=== PATIENT | female | born 1960 | race Caucasian/White ===

== ENCOUNTER 2017-08-09 10:24 | Inpatient (IN) | payer MEDICARE, MEDICAID ==
[2017-08-09] VITALS (7 sets, daily range): BP systolic 98–122; BP diastolic 68–87
[~2017-08-09] VITALS: Ht 175.3 cm; Wt 132.6 kg
[~2017-08-09 10:24] MED LIST: ALBU2.5V10 IH; ALBU8.5H8 IH; ASPI-1265 PO; BACL20TA PO; BUDE10.2 INH; CLON-527 PO; FLUO10CA51 PO; FURO80TA87 PO; GABA-532 PO; HYDR12.5 PO; METF500T4 PO; MIRT15TA PO; POTA8CAP9 PO; PRED20TA PO; SIMV40TA4 PO; SPIIN INH; TRAM50TA2 PO; WARF4TAB7 PO
[2017-08-09 11:35] LABS: BASOPHILS # (AUTO) 0.1 X10'3 (0-0.2); BASOPHILS % (AUTO) 1.3 % (0-1); EOSINOPHILS # (AUTO) 0.2 X10'3 (0-0.9); EOSINOPHILS % (AUTO) 1.9 % (0-6); HEMOGLOBIN 11.9 g/dl (12.0-16.0); MEAN CORPUSCULAR HEMOGLOBIN 27.2 PG (27.0-31.0); MEAN CORPUSCULAR HGB CONC 31.4 % (33.0-36.5); MEAN CORPUSCULAR VOLUME 86.5 FL (78-98); MEAN PLATELET VOLUME 8.4 FL (7.4-10.4); MONOCYTES # (AUTO) 0.5 X10'3 (0-0.9); MONOCYTES % (AUTO) 5.6 % (2-12); NEUTROPHILS # (AUTO) 6.6 X10'3 (1.8-7.7); NEUTROPHILS % (AUTO) 70.2 % (42-75); PLATELET COUNT 161 X10'3 (140-440); RED BLOOD COUNT 4.39 X10'6 (4.20-5.60); RED CELL DISTRIBUTION WIDTH 20.1 % (11.5-14.5); WHITE BLOOD COUNT 9.4 X10'3 (4.5-11.0)
[2017-08-09 11:46] LABS: INR 1.8 INR; PROTHROMBIN TIME 18.3 SECONDS (9.0-12.0)
[2017-08-09 11:59] LABS: ALANINE AMINOTRANSFERASE 46 U/L (12-78); ALBUMIN/GLOBULIN RATIO 0.8 (1.1-1.5); ALKALINE PHOSPHATASE 275 IU/L (46-116); ANION GAP 5 (8-16); ASPARTATE AMINO TRANSFERASE 34 U/L (10-37); BILIRUBIN,TOTAL 0.4 MG/DL (0.1-1.0); BLOOD UREA NITROGEN 62 MG/DL (7-18); BUN/CREATININE RATIO 25.4 (6.6-38.0); CALCIUM 9.2 MG/DL (8.5-10.1); CHLORIDE 103 MMOL/L (99-107); CREATININE 2.44 MG/DL (0.40-0.90); GLUCOSE 91 MG/DL (70-104); POTASSIUM 5.5 MMOL/L (3.5-5.1); SODIUM 141 MMOL/L (135-145); TOTAL CARBON DIOXIDE 33.2 MMOL/L (24-32); eGFR 20 ML/MIN
[2017-08-09] MEDS ORDERED: ipratropium/albuterol 3ml nebule NEB ONE (12:15)
[2017-08-09] MEDS ORDERED: furosemide 40mg/4ml inj IV ONE (12:15)
[2017-08-09] MEDS ORDERED: methylPREDNISolone sod succ 125mg/2ml vial IV ONE (12:15)
[2017-08-09] MEDS ORDERED: metoprolol tartrate 50mg tablet PO ONE (12:50)
[2017-08-09] MEDS ORDERED: nitroGLYCERIN 0.4mg SUBLingual tab SL PRN ×2 (12:50→13:55)
[2017-08-09] MEDS ORDERED: aspirin 81mg tab.chew PO ONE (12:50)
[2017-08-09] MEDS ORDERED: diltiazem 5mg/ml 5ml inj. IV ONE (12:50)
[2017-08-09] MEDS ORDERED: acetaminophen 325mg tablet PO PRN (13:40)
[2017-08-09] MEDS ORDERED: morphine 2 MG/ML inj. syringe IV PRN ×2 (13:40)
[2017-08-09] MEDS ORDERED: magnesium 4gm in 100ml NS 100 ML IV PRN (13:40)
[2017-08-09] MEDS ORDERED: mag hydrox/Alum hydrox/simeth 30ml oral suspension PO PRN (13:40)
[2017-08-09] MEDS ORDERED: magnesium 2GM in 50ml NS 50 ML IV PRN (13:40)
[2017-08-09] MEDS ORDERED: magnesium Cl slow-release 64mg tablet PO PRN (13:40)
[2017-08-09] MEDS ORDERED: potassium Cl 20 mEq SR tablet PO PRN ×2 (13:40)
[2017-08-09] MEDS ORDERED: diltiazem-D5W 125mg/125ml 125 ML IV SCH (13:40)
[2017-08-09] MEDS ORDERED: HYDROcodone/acetaminophen 5mg/325mg tablet PO PRN (13:40)
[2017-08-09] MEDS ORDERED: ondansetron/PF 4mg/2ml inj IV PRN (13:40)
[2017-08-09] MEDS ORDERED: potassium Cl 40MEQ/NS 500ml 500 ML IV PRN ×2 (13:40)
[2017-08-09] MEDS ORDERED: magnesium hydroxide 30ml (MOM) UD suspension PO PRN (13:40)
[2017-08-09] MEDS ORDERED: dextrose ORAL solution 15 GM/59 ML bottle PO PRN ×2 (13:50)
[2017-08-09] MEDS ORDERED: glucagon, human recombinant 1mg kit SUBCUT PRN (13:50)
[2017-08-09] MEDS ORDERED: dextrose 50%-water 50ml dispensing syringe IV PRN ×2 (13:50)
[2017-08-09] MEDS ORDERED: MESSAGE TO PHARMACY PO ONE (13:50)
[2017-08-09] MEDS: methylPREDNISolone sod succ 125mg/2ml vial IV SCH ×2 (14:00→20:46)
[2017-08-09] MEDS: gabapentin 300mg capsule PO SCH ×2 (14:00→20:49)
[2017-08-09] MEDS: furosemide 20 MG/2 ML vial IV SCH ×2 (14:00→20:51)
[2017-08-09] MEDS ORDERED: sodium polystyrene sulfonate 15gm/60ml oral suspension PO ONE (14:05)
[2017-08-09 14:26] LABS: HEMOGLOBIN A1C 7.4 % (4.5-6.2)
[2017-08-09] MEDS ORDERED: albuterol 2.5 MG/3 ML nebule NEB PRN (14:30)
[2017-08-09 14:48] LABS: CLARITY,URINE CLEAR (Clear); COLOR,URINE YELLOW (Yellow); GLUCOSE, URINE NEGATIVE (Neg); KETONES,URINE NEGATIVE (Neg); LEUKOCYTE ESTERASE ,URINE NEGATIVE (Neg); NITRITES, URINE NEGATIVE (Neg); OCCULT BLOOD,URINE NEGATIVE (Neg); PH,URINE 5.5 (4.8-8.0); PROTEIN,URINE NEGATIVE (Neg); UROBILINOGEN,URINE 0.2 E.U/dL (0.2-1.0)
[2017-08-09 14:49] LABS: UA COLLECTION TYPE FOLEY CATH
[2017-08-09] MEDS: diltiazem-D5W 125mg/125ml 125 ML IV PRN (16:06)
[2017-08-09] MEDS ORDERED: gabapentin 300mg capsule PO ONE (16:20)
[2017-08-09] MEDS: ipratropium/albuterol 3ml nebule NEB SCH ×3 (16:26→23:04)
[2017-08-09] MEDS: baclofen 10mg tablet PO SCH (20:00)
[2017-08-09] MEDS: mirtazapine 15mg tablet PO SCH (20:47)
[2017-08-09] MEDS: clonazePAM 1mg tablet PO PRN (20:49)
[2017-08-09] MEDS: FLUoxetine 10mg capsule PO SCH (20:51)
[2017-08-09] MEDS: docusate sod 100mg capsule PO SCH (20:51)
[2017-08-09] MEDS ORDERED: potassium Cl oral solution 20 MEQ/15 ML PO SCH (21:00)
[2017-08-09] MEDS ORDERED: warfarin 4mg tablet PO SCH (21:00)
[2017-08-09] MEDS ORDERED: warfarin 4mg tablet PO ONE (21:00)
[2017-08-09] MEDS ORDERED: atorvastatin 20mg tablet PO SCH (21:00)
[2017-08-09] MEDS: Insulin Detemir pen SQ SCH (21:14)
[2017-08-09] MEDS: insulin Lispro (HumaLOG) vial - multi-dose SQ SCH (21:15)
[2017-08-10] VITALS (19 sets, daily range): BP systolic 92–128; BP diastolic 41–95
[2017-08-10 01:25] LABS: BASOPHILS % (AUTO) 0.1 % (0-1); EOSINOPHILS # (AUTO) 0.1 X10'3 (0-0.9); EOSINOPHILS % (AUTO) 1.7 % (0-6); HEMOGLOBIN 11.9 g/dl (12.0-16.0); LYMPHOCYTES # (AUTO) 1.1 X10'3 (1.1-4.8); LYMPHOCYTES % (AUTO) 14.3 % (21-51); MEAN CORPUSCULAR HEMOGLOBIN 26.8 PG (27.0-31.0); MEAN CORPUSCULAR HGB CONC 31.2 % (33.0-36.5); MEAN PLATELET VOLUME 8.8 FL (7.4-10.4); MONOCYTES % (AUTO) 0.6 % (2-12); NEUTROPHILS # (AUTO) 6.7 X10'3 (1.8-7.7); NEUTROPHILS % (AUTO) 83.3 % (42-75); PLATELET COUNT 160 X10'3 (140-440); RED BLOOD COUNT 4.42 X10'6 (4.20-5.60); RED CELL DISTRIBUTION WIDTH 20.6 % (11.5-14.5)
[2017-08-10 01:34] LABS: INR 1.7 INR; PROTHROMBIN TIME 17.6 SECONDS (9.0-12.0)
[2017-08-10] MEDS: furosemide 20 MG/2 ML vial IV SCH ×4 (01:41→20:52)
[2017-08-10] MEDS: methylPREDNISolone sod succ 125mg/2ml vial IV SCH ×4 (01:41→20:52)
[2017-08-10 01:42] LABS: ALANINE AMINOTRANSFERASE 80 U/L (12-78); ALBUMIN/GLOBULIN RATIO 0.8 (1.1-1.5); ALKALINE PHOSPHATASE 337 IU/L (46-116); ANION GAP 5 (8-16); ASPARTATE AMINO TRANSFERASE 92 U/L (10-37); BILIRUBIN,TOTAL 0.5 MG/DL (0.1-1.0); BLOOD UREA NITROGEN 70 MG/DL (7-18); BUN/CREATININE RATIO 26.5 (6.6-38.0); CALCIUM 8.9 MG/DL (8.5-10.1); CHLORIDE 100 MMOL/L (99-107); CHOL/HDL RATIO 2.6 (0.00-4.99); CHOLESTEROL 128 MG/DL (0-200); CREATININE 2.64 MG/DL (0.40-0.90); GLUCOSE 272 MG/DL (70-104); HDL CHOLESTEROL 50 MG/DL (35-60); LDL CHOLESTEROL 60 MG/DL (50-100); MAGNESIUM 3.1 MG/DL (1.5-2.4); SODIUM 137 MMOL/L (135-145); TOTAL CARBON DIOXIDE 31.8 MMOL/L (24-32); TOTAL PROTEIN 6.9 G/DL (6.4-8.2); TRIGLYCERIDES 81 MG/DL (20-135); eGFR 19 ML/MIN
[2017-08-10] MEDS: ipratropium/albuterol 3ml nebule NEB SCH ×6 (02:56→22:56)
[2017-08-10] MEDS: docusate sod 100mg capsule PO SCH ×2 (08:00→20:51)
[2017-08-10] MEDS: K and/or MAG REPLACEMENT MC SCH (08:00)
[2017-08-10] MEDS: baclofen 10mg tablet PO SCH ×3 (08:00→20:52)
[2017-08-10] MEDS: fluticasone/vilanterol 200mcg/25mcg inhaler IH SCH (08:46)
[2017-08-10] MEDS: aspirin 81mg tab.chew PO SCH (09:11)
[2017-08-10] MEDS: clonazePAM 1mg tablet PO PRN ×3 (09:11→20:51)
[2017-08-10] MEDS: FLUoxetine 10mg capsule PO SCH ×3 (09:11→20:51)
[2017-08-10] MEDS: gabapentin 300mg capsule PO SCH ×3 (09:12→20:51)
[2017-08-10] MEDS: traMADol 50MG tablet PO PRN ×2 (09:13→20:50)
[2017-08-10] MEDS: pantoprazole 40mg Tablet.DR PO SCH (09:18)
[2017-08-10] MEDS: insulin Lispro (HumaLOG) vial - multi-dose SQ SCH ×3 (09:21→23:26)
[2017-08-10 10:20] LABS: ALBUMIN 3.1 G/DL (3.4-5.0); ANION GAP 5 (8-16); BLOOD UREA NITROGEN 72 MG/DL (7-18); BUN/CREATININE RATIO 25.3 (6.6-38.0); CALCIUM 8.8 MG/DL (8.5-10.1); CHLORIDE 97 MMOL/L (99-107); CREATININE 2.85 MG/DL (0.40-0.90); GLUCOSE 277 MG/DL (70-104); POTASSIUM 5.4 MMOL/L (3.5-5.1); SODIUM 134 MMOL/L (135-145); TOTAL CARBON DIOXIDE 32.2 MMOL/L (24-32); eGFR 17 ML/MIN
[2017-08-10] MEDS: diltiazem-D5W 125mg/125ml 125 ML IV PRN (11:05)
[2017-08-10] MEDS ORDERED: sodium polystyrene sulfonate 15gm/60ml oral suspension PO ONE (12:38)
[2017-08-10] MEDS: cefTRIAXone 1g/NS 100ml IVPB 100 ML IV SCH (13:29)
[2017-08-10] MEDS: heparin, porcine 5000 units/ml vial SQ SCH ×2 (13:30→20:56)
[2017-08-10 19:26] LABS: ALANINE AMINOTRANSFERASE 68 U/L (12-78); ALBUMIN 3.2 G/DL (3.4-5.0); ALBUMIN/GLOBULIN RATIO 0.8 (1.1-1.5); ALKALINE PHOSPHATASE 302 IU/L (46-116); ANION GAP 6 (8-16); ASPARTATE AMINO TRANSFERASE 43 U/L (10-37); BILIRUBIN,TOTAL 0.4 MG/DL (0.1-1.0); BLOOD UREA NITROGEN 80 MG/DL (7-18); BUN/CREATININE RATIO 24.9 (6.6-38.0); CALCIUM 8.5 MG/DL (8.5-10.1); CHLORIDE 97 MMOL/L (99-107); CREATININE 3.21 MG/DL (0.40-0.90); GLUCOSE 236 MG/DL (70-104); POTASSIUM 5.4 MMOL/L (3.5-5.1); SODIUM 135 MMOL/L (135-145); TOTAL CARBON DIOXIDE 32.4 MMOL/L (24-32); TOTAL PROTEIN 7.2 G/DL (6.4-8.2); eGFR 15 ML/MIN
[2017-08-10] MEDS: mirtazapine 15mg tablet PO SCH (20:51)
[2017-08-10] MEDS ORDERED: warfarin 10mg tablet PO ONE (21:00)
[2017-08-10] MEDS: Insulin Detemir pen SQ SCH (23:25)
[2017-08-11] VITALS (20 sets, daily range): BP systolic 88–121; BP diastolic 56–81
[2017-08-11] MEDS: furosemide 20 MG/2 ML vial IV SCH ×4 (02:26→20:51)
[2017-08-11] MEDS: methylPREDNISolone sod succ 125mg/2ml vial IV SCH ×4 (02:26→12:04)
[2017-08-11] MEDS: ipratropium/albuterol 3ml nebule NEB SCH ×6 (04:02→23:58)
[2017-08-11 06:16] LABS: INR 2.3 INR; PROTHROMBIN TIME 23.6 SECONDS (9.0-12.0)
[2017-08-11 06:27] LABS: ALANINE AMINOTRANSFERASE 61 U/L (12-78); ALBUMIN/GLOBULIN RATIO 0.8 (1.1-1.5); ALKALINE PHOSPHATASE 262 IU/L (46-116); ANION GAP 8 (8-16); ASPARTATE AMINO TRANSFERASE 28 U/L (10-37); BILIRUBIN,TOTAL 0.3 MG/DL (0.1-1.0); BLOOD UREA NITROGEN 86 MG/DL (7-18); BUN/CREATININE RATIO 24.4 (6.6-38.0); CALCIUM 7.9 MG/DL (8.5-10.1); CHLORIDE 96 MMOL/L (99-107); CREATININE 3.53 MG/DL (0.40-0.90); GLUCOSE 339 MG/DL (70-104); MAGNESIUM 3.1 MG/DL (1.5-2.4); POTASSIUM 5.2 MMOL/L (3.5-5.1); SODIUM 134 MMOL/L (135-145); TOTAL CARBON DIOXIDE 29.6 MMOL/L (24-32); TOTAL PROTEIN 6.6 G/DL (6.4-8.2); eGFR 13 ML/MIN
[2017-08-11] MEDS: aspirin 81mg tab.chew PO SCH (08:00)
[2017-08-11] MEDS: docusate sod 100mg capsule PO SCH ×2 (08:00→20:50)
[2017-08-11] MEDS: fluticasone/vilanterol 200mcg/25mcg inhaler IH SCH (08:00)
[2017-08-11] MEDS: K and/or MAG REPLACEMENT MC SCH (08:00)
[2017-08-11] MEDS: baclofen 10mg tablet PO SCH ×2 (08:00→20:51)
[2017-08-11] MEDS: gabapentin 300mg capsule PO SCH ×3 (09:15→20:50)
[2017-08-11] MEDS: FLUoxetine 10mg capsule PO SCH ×3 (09:15→20:52)
[2017-08-11] MEDS: cefTRIAXone 1g/NS 100ml IVPB 100 ML IV SCH ×2 (09:15→12:03)
[2017-08-11] MEDS: pantoprazole 40mg Tablet.DR PO SCH (09:16)
[2017-08-11] MEDS: diltiazem CD 120mg capsule (once-daily) PO SCH (09:18)
[2017-08-11] MEDS: LACTOBACILLUS RHAMNOSUS GG 15 billion unit sprinkle caps PO SCH (09:19)
[2017-08-11] MEDS: insulin Lispro (HumaLOG) vial - multi-dose SQ SCH ×3 (09:28→19:07)
[2017-08-11] MEDS ORDERED: furosemide 20 MG/2 ML vial IV ONE (10:30)
[2017-08-11] MEDS: traMADol 50MG tablet PO PRN ×2 (10:31→21:12)
[2017-08-11] MEDS: clonazePAM 1mg tablet PO PRN ×2 (10:32→21:12)
[2017-08-11] MEDS: mirtazapine 15mg tablet PO SCH (20:52)
[2017-08-11] MEDS ORDERED: warfarin 4mg tablet PO ONE (21:00)
[2017-08-11] MEDS: Insulin Detemir pen SQ SCH (21:18)
[2017-08-12] MEDS: methylPREDNISolone sod succ 125mg/2ml vial IV SCH ×2 (00:09→08:37)
[2017-08-12 02:00] VITALS: BP 127/70
[2017-08-12] MEDS: furosemide 20 MG/2 ML vial IV SCH ×4 (03:03→20:15)
[2017-08-12] MEDS: ipratropium/albuterol 3ml nebule NEB SCH ×6 (03:35→23:05)
[2017-08-12 04:56] LABS: INR 1.9 INR; PROTHROMBIN TIME 19.3 SECONDS (9.0-12.0)
[2017-08-12 05:03] LABS: ALANINE AMINOTRANSFERASE 54 U/L (12-78); ALBUMIN 3.1 G/DL (3.4-5.0); ALBUMIN/GLOBULIN RATIO 0.8 (1.1-1.5); ALKALINE PHOSPHATASE 250 IU/L (46-116); ANION GAP 8 (8-16); ASPARTATE AMINO TRANSFERASE 17 U/L (10-37); BILIRUBIN,TOTAL 0.3 MG/DL (0.1-1.0); BLOOD UREA NITROGEN 101 MG/DL (7-18); BUN/CREATININE RATIO 27.2 (6.6-38.0); CALCIUM 8.2 MG/DL (8.5-10.1); CHLORIDE 96 MMOL/L (99-107); CREATININE 3.71 MG/DL (0.40-0.90); GLUCOSE 204 MG/DL (70-104); MAGNESIUM 3.4 MG/DL (1.5-2.4); SODIUM 135 MMOL/L (135-145); TOTAL CARBON DIOXIDE 30.9 MMOL/L (24-32); TOTAL PROTEIN 6.9 G/DL (6.4-8.2); eGFR 12 ML/MIN
[2017-08-12 06:00] VITALS: BP 90/60
[2017-08-12] MEDS: docusate sod 100mg capsule PO SCH ×3 (08:00→20:16)
[2017-08-12] MEDS: K and/or MAG REPLACEMENT MC SCH (08:00)
[2017-08-12] MEDS: baclofen 10mg tablet PO SCH ×2 (08:00→20:00)
[2017-08-12] MEDS: cefTRIAXone 1g/NS 100ml IVPB 100 ML IV SCH (08:37)
[2017-08-12] MEDS: diltiazem CD 120mg capsule (once-daily) PO SCH (08:38)
[2017-08-12] MEDS: FLUoxetine 10mg capsule PO SCH ×3 (08:38→20:16)
[2017-08-12] MEDS: gabapentin 300mg capsule PO SCH ×3 (08:39→20:15)
[2017-08-12] MEDS: aspirin 81mg tab.chew PO SCH (08:39)
[2017-08-12] MEDS: pantoprazole 40mg Tablet.DR PO SCH (08:40)
[2017-08-12] MEDS: LACTOBACILLUS RHAMNOSUS GG 15 billion unit sprinkle caps PO SCH (08:40)
[2017-08-12] MEDS: fluticasone/vilanterol 200mcg/25mcg inhaler IH SCH (08:42)
[2017-08-12] MEDS: insulin Lispro (HumaLOG) vial - multi-dose SQ SCH ×4 (08:42→20:40)
[2017-08-12] MEDS: clonazePAM 1mg tablet PO PRN ×2 (08:54→16:27)
[2017-08-12] MEDS: traMADol 50MG tablet PO PRN ×2 (08:54→16:27)
[2017-08-12 11:00] VITALS: BP 98/62
[2017-08-12 15:00] VITALS: BP 103/49
[2017-08-12] MEDS: methylPREDNISolone sod succ/PF 40mg inj. IV SCH (16:28)
[2017-08-12 18:39] LABS: CREATININE,URINE RANDOM 75.6 MG/DL; SODIUM,URINE RANDOM < 15 MEQ/L; TOTAL PROTEIN,URINE RANDOM 42.1 MG/DL
[2017-08-12 19:00] VITALS: BP 113/79
[2017-08-12] MEDS: mirtazapine 15mg tablet PO SCH (20:16)
[2017-08-12] MEDS: Insulin Detemir pen SQ SCH (20:39)
[2017-08-12] MEDS ORDERED: warfarin 3mg tablet PO ONE ×2 (21:00)
[2017-08-12] MEDS ORDERED: warfarin 4mg tablet PO ONE (21:00)
[2017-08-12 23:00] VITALS: BP 119/93
[2017-08-13] VITALS (22 sets, daily range): BP systolic 93–138; BP diastolic 56–103
[2017-08-13] MEDS: methylPREDNISolone sod succ/PF 40mg inj. IV SCH ×3 (00:52→17:50)
[2017-08-13] MEDS: furosemide 20 MG/2 ML vial IV SCH ×2 (01:00→08:27)
[2017-08-13] MEDS: ipratropium/albuterol 3ml nebule NEB SCH ×6 (03:17→23:23)
[2017-08-13] MEDS ORDERED: diltiazem 5mg/ml 5ml inj. IV ONE (04:10)
[2017-08-13 05:11] LABS: BASOPHILS % (AUTO) 0.3 % (0-1); EOSINOPHILS # (AUTO) 0.2 X10'3 (0-0.9); EOSINOPHILS % (AUTO) 1.5 % (0-6); HEMATOCRIT 39.5 % (35.0-45.0); HEMOGLOBIN 12.5 g/dl (12.0-16.0); LYMPHOCYTES # (AUTO) 0.3 X10'3 (1.1-4.8); LYMPHOCYTES % (AUTO) 2.8 % (21-51); MEAN CORPUSCULAR HEMOGLOBIN 26.9 PG (27.0-31.0); MEAN CORPUSCULAR HGB CONC 31.5 % (33.0-36.5); MEAN CORPUSCULAR VOLUME 85.2 FL (78-98); MEAN PLATELET VOLUME 8.7 FL (7.4-10.4); MONOCYTES # (AUTO) 0.3 X10'3 (0-0.9); MONOCYTES % (AUTO) 3.1 % (2-12); NEUTROPHILS % (AUTO) 92.3 % (42-75); PLATELET COUNT 172 X10'3 (140-440); RED BLOOD COUNT 4.64 X10'6 (4.20-5.60); RED CELL DISTRIBUTION WIDTH 20.7 % (11.5-14.5); WHITE BLOOD COUNT 10.8 X10'3 (4.5-11.0)
[2017-08-13 05:37] LABS: ALANINE AMINOTRANSFERASE 50 U/L (12-78); ALBUMIN 3.3 G/DL (3.4-5.0); ALBUMIN/GLOBULIN RATIO 0.8 (1.1-1.5); ALKALINE PHOSPHATASE 242 IU/L (46-116); ANION GAP 9 (8-16); ASPARTATE AMINO TRANSFERASE 14 U/L (10-37); BILIRUBIN,TOTAL 0.4 MG/DL (0.1-1.0); BLOOD UREA NITROGEN 113 MG/DL (7-18); BUN/CREATININE RATIO 27.8 (6.6-38.0); CHLORIDE 95 MMOL/L (99-107); CREATININE 4.07 MG/DL (0.40-0.90); GLUCOSE 248 MG/DL (70-104); MAGNESIUM 3.2 MG/DL (1.5-2.4); POTASSIUM 4.8 MMOL/L (3.5-5.1); SODIUM 134 MMOL/L (135-145); TOTAL CARBON DIOXIDE 30.4 MMOL/L (24-32); TOTAL PROTEIN 7.2 G/DL (6.4-8.2); eGFR 11 ML/MIN
[2017-08-13 05:39] LABS: INR 1.4 INR; PROTHROMBIN TIME 14.7 SECONDS (9.0-12.0)
[2017-08-13] MEDS: K and/or MAG REPLACEMENT MC SCH (08:00)
[2017-08-13] MEDS: baclofen 10mg tablet PO SCH ×2 (08:00→20:00)
[2017-08-13] MEDS ORDERED: heparin, porcine 5000 units/ml vial SQ SCH (08:00)
[2017-08-13] MEDS: docusate sod 100mg capsule PO SCH ×2 (08:00→22:23)
[2017-08-13] MEDS: diltiazem CD 120mg capsule (once-daily) PO SCH (08:06)
[2017-08-13] MEDS: cefTRIAXone 1g/NS 100ml IVPB 100 ML IV SCH (08:06)
[2017-08-13] MEDS: LACTOBACILLUS RHAMNOSUS GG 15 billion unit sprinkle caps PO SCH (08:06)
[2017-08-13] MEDS: gabapentin 300mg capsule PO SCH ×3 (08:07→22:23)
[2017-08-13] MEDS: pantoprazole 40mg Tablet.DR PO SCH (08:07)
[2017-08-13] MEDS: FLUoxetine 10mg capsule PO SCH ×3 (08:07→21:00)
[2017-08-13] MEDS: aspirin 81mg tab.chew PO SCH (08:07)
[2017-08-13] MEDS: clonazePAM 1mg tablet PO PRN (08:27)
[2017-08-13] MEDS: traMADol 50MG tablet PO PRN (08:27)
[2017-08-13] MEDS: fluticasone/vilanterol 200mcg/25mcg inhaler IH SCH (08:31)
[2017-08-13] MEDS: insulin Lispro (HumaLOG) vial - multi-dose SQ SCH ×2 (08:39→14:52)
[2017-08-13] MEDS ORDERED: furosemide 10 MG/1 ML 10ml inj IV ONE (10:00)
[2017-08-13 10:05] LABS: ABG BASE EXCESS -1.6 mmol/L (-2.0-3.0); ABG HCO3 28.1 mmol/L (22.0-26.0); ABG OXYGEN SATURATION 87.5 % (95-98); ABG PCO2 (T) 74.1 mmHg (32.0-45.0); ABG PH (T) 7.197 (7.350-7.450); ABG PO2 (T) 58.9 mmHg (83-108); ALLEN'S TEST Positive; FCOHb 0.5 % (0.5-1.5); FLOW 10 L/min; FMetHb 0.2 % (0.3-1.12); FO2Hb 86.9 % (94-100); TOTAL HEMOGLOBIN 12.9 G/dl (12.0-16.0)
[2017-08-13] MEDS: furosemide inj 100 ML IV SCH (13:07)
[2017-08-13 13:35] LABS: ABG BASE EXCESS -2.6 mmol/L (-2.0-3.0); ABG OXYGEN SATURATION 89.4 % (95-98); ABG PCO2 (T) 64.2 mmHg (32.0-45.0); ABG PH (T) 7.226 (7.350-7.450); ABG PO2 (T) 62.6 mmHg (83-108); ALLEN'S TEST Positive; FCOHb 0.2 % (0.5-1.5); FMetHb 0.2 % (0.3-1.12); RESPIRATORY RATE 18 b/min; TIDAL VOLUME 554 mL; TOTAL HEMOGLOBIN 12.5 G/dl (12.0-16.0)
[2017-08-13 16:16] LABS: ABG BASE EXCESS -4.9 mmol/L (-2.0-3.0); ABG OXYGEN SATURATION 90.4 % (95-98); ABG PH (T) 7.279 (7.350-7.450); ABG PO2 (T) 64.7 mmHg (83-108); FCOHb 0.2 % (0.5-1.5); FO2Hb 90.2 % (94-100); RESPIRATORY RATE 18 b/min; TOTAL HEMOGLOBIN 12.4 G/dl (12.0-16.0)
[2017-08-13] MEDS ORDERED: sodium phosphate inj. 30 MMOL in dextrose 5%-water 250 ML IV PRN (17:45)
[2017-08-13] MEDS ORDERED: sodium phosphate inj. 15 MMOL in dextrose 5%-water 150 ML IV PRN (17:45)
[2017-08-13 20:44] LABS: ALBUMIN 2.9 G/DL (3.4-5.0); ANION GAP 5 (8-16); BLOOD UREA NITROGEN 118 MG/DL (7-18); BUN/CREATININE RATIO 31.6 (6.6-38.0); CALCIUM 7.8 MG/DL (8.5-10.1); CHLORIDE 98 MMOL/L (99-107); CREATININE 3.73 MG/DL (0.40-0.90); GLUCOSE 188 MG/DL (70-104); MAGNESIUM 3.1 MG/DL (1.5-2.4); PHOSPHORUS 8.8 MG/DL (2.3-4.5); POTASSIUM 4.6 MMOL/L (3.5-5.1); SODIUM 136 MMOL/L (135-145); TOTAL CARBON DIOXIDE 33.3 MMOL/L (24-32); eGFR 12 ML/MIN
[2017-08-13] MEDS: mirtazapine 15mg tablet PO SCH (21:00)
[2017-08-13] MEDS ORDERED: warfarin 10mg tablet PO ONE (21:00)
[2017-08-13] MEDS: Insulin Detemir pen SQ SCH (22:21)
[2017-08-13] MEDS: heparin, porcine 5000 units/ml vial SQ SCH (22:22)
[2017-08-14] VITALS (27 sets, daily range): BP systolic 84–126; BP diastolic 53–81
[2017-08-14 01:28] LABS: INR 1.6 INR; PROTHROMBIN TIME 15.9 SECONDS (9.0-12.0)
[2017-08-14 01:34] LABS: ALANINE AMINOTRANSFERASE 39 U/L (12-78); ALBUMIN 2.9 G/DL (3.4-5.0); ALBUMIN/GLOBULIN RATIO 0.9 (1.1-1.5); ALKALINE PHOSPHATASE 179 IU/L (46-116); ANION GAP 5 (8-16); ASPARTATE AMINO TRANSFERASE 14 U/L (10-37); BILIRUBIN,TOTAL 0.3 MG/DL (0.1-1.0); BLOOD UREA NITROGEN 115 MG/DL (7-18); BUN/CREATININE RATIO 31.3 (6.6-38.0); CALCIUM 7.9 MG/DL (8.5-10.1); CHLORIDE 97 MMOL/L (99-107); CREATININE 3.68 MG/DL (0.40-0.90); GLUCOSE 210 MG/DL (70-104); PHOSPHORUS 8.6 MG/DL (2.3-4.5); POTASSIUM 4.7 MMOL/L (3.5-5.1); SODIUM 134 MMOL/L (135-145); TOTAL PROTEIN 6.2 G/DL (6.4-8.2); eGFR 13 ML/MIN
[2017-08-14] MEDS: methylPREDNISolone sod succ/PF 40mg inj. IV SCH ×4 (02:03→23:33)
[2017-08-14 02:06] LABS: BASOPHILS % (AUTO) 0 % (0-1); EOSINOPHILS % (AUTO) 0 % (0-6); HEMATOCRIT 35.3 % (35.0-45.0); HEMOGLOBIN 11.2 g/dl (12.0-16.0); LYMPHOCYTES # (AUTO) 0.4 X10'3 (1.1-4.8); LYMPHOCYTES % (AUTO) 4.5 % (21-51); MEAN CORPUSCULAR HEMOGLOBIN 26.8 PG (27.0-31.0); MEAN CORPUSCULAR HGB CONC 31.8 % (33.0-36.5); MEAN CORPUSCULAR VOLUME 84.5 FL (78-98); MEAN PLATELET VOLUME 9.1 FL (7.4-10.4); MONOCYTES # (AUTO) 0.4 X10'3 (0-0.9); MONOCYTES % (AUTO) 4.8 % (2-12); NEUTROPHILS # (AUTO) 7.7 X10'3 (1.8-7.7); NEUTROPHILS % (AUTO) 90.7 % (42-75); PLATELET COUNT 128 X10'3 (140-440); RED BLOOD COUNT 4.18 X10'6 (4.20-5.60); RED CELL DISTRIBUTION WIDTH 19.6 % (11.5-14.5); WHITE BLOOD COUNT 8.5 X10'3 (4.5-11.0)
[2017-08-14] MEDS: ipratropium/albuterol 3ml nebule NEB SCH ×6 (02:58→23:21)
[2017-08-14] MEDS: K and/or MAG REPLACEMENT MC SCH (08:00)
[2017-08-14] MEDS: baclofen 10mg tablet PO SCH (08:00)
[2017-08-14 08:06] LABS: MAGNESIUM 2.9 MG/DL (1.5-2.4)
[2017-08-14] MEDS: pantoprazole 40mg Tablet.DR PO SCH (08:35)
[2017-08-14] MEDS: traMADol 50MG tablet PO PRN ×3 (08:35→20:38)
[2017-08-14] MEDS: LACTOBACILLUS RHAMNOSUS GG 15 billion unit sprinkle caps PO SCH (08:35)
[2017-08-14] MEDS: cefTRIAXone 1g/NS 100ml IVPB 100 ML IV SCH (08:36)
[2017-08-14] MEDS: docusate sod 100mg capsule PO SCH ×2 (08:38→20:00)
[2017-08-14] MEDS: diltiazem CD 120mg capsule (once-daily) PO SCH (08:38)
[2017-08-14] MEDS: aspirin 81mg tab.chew PO SCH (08:38)
[2017-08-14] MEDS: gabapentin 300mg capsule PO SCH ×3 (08:39→20:39)
[2017-08-14] MEDS: FLUoxetine 10mg capsule PO SCH ×3 (08:39→20:36)
[2017-08-14] MEDS: heparin, porcine 5000 units/ml vial SQ SCH ×2 (08:40→20:39)
[2017-08-14] MEDS: insulin Lispro (HumaLOG) vial - multi-dose SQ SCH ×4 (08:45→20:51)
[2017-08-14 09:49] LABS: ALBUMIN 2.9 G/DL (3.4-5.0); ANION GAP 10 (8-16); BLOOD UREA NITROGEN 121 MG/DL (7-18); BUN/CREATININE RATIO 33.3 (6.6-38.0); CALCIUM 7.9 MG/DL (8.5-10.1); CHLORIDE 97 MMOL/L (99-107); CREATININE 3.63 MG/DL (0.40-0.90); GLUCOSE 219 MG/DL (70-104); PHOSPHORUS 8.7 MG/DL (2.3-4.5); POTASSIUM 4.8 MMOL/L (3.5-5.1); SODIUM 135 MMOL/L (135-145); TOTAL CARBON DIOXIDE 28.5 MMOL/L (24-32); eGFR 13 ML/MIN
[2017-08-14] MEDS: fluticasone/vilanterol 200mcg/25mcg inhaler IH SCH (09:56)
[2017-08-14 11:36] LABS: ABG BASE EXCESS 2.4 mmol/L (-2.0-3.0); ABG HCO3 29.6 mmol/L (22.0-26.0); ABG OXYGEN SATURATION 95.9 % (95-98); ABG PCO2 (T) 58.6 mmHg (32.0-45.0); ABG PH (T) 7.321 (7.350-7.450); ABG PO2 (T) 87.6 mmHg (83-108); FMetHb 0.2 % (0.3-1.12); FO2Hb 95.7 % (94-100); RESPIRATORY RATE 18 b/min; TOTAL HEMOGLOBIN 11.8 G/dl (12.0-16.0)
[2017-08-14] MEDS: metolazone 2.5mg tablet PO SCH ×3 (12:36→23:34)
[2017-08-14] MEDS: spironolactone 25 MG tablet PO SCH ×3 (12:36→23:33)
[2017-08-14 14:35] LABS: UREA NITROGEN 24HR,URINE 20.4 GM/24HR (7-20)
[2017-08-14 15:10] LABS: ALBUMIN 2.7 G/DL (3.4-5.0); ANION GAP 7 (8-16); BLOOD UREA NITROGEN 124 MG/DL (7-18); BUN/CREATININE RATIO 32.7 (6.6-38.0); CALCIUM 7.6 MG/DL (8.5-10.1); CHLORIDE 97 MMOL/L (99-107); CREATININE 3.79 MG/DL (0.40-0.90); GLUCOSE 280 MG/DL (70-104); MAGNESIUM 2.9 MG/DL (1.5-2.4); POTASSIUM 4.5 MMOL/L (3.5-5.1); SODIUM 134 MMOL/L (135-145); TOTAL CARBON DIOXIDE 30.4 MMOL/L (24-32); eGFR 12 ML/MIN
[2017-08-14] MEDS: furosemide inj 100 ML IV SCH (15:31)
[2017-08-14 18:10] LABS: OXYGEN SATURATION (MIXED VEN) 66.2 % (60-80); PO2 MIXED VENOUS (TEMP COR) 37.7 mmHg (35-46)
[2017-08-14 19:52] LABS: ALBUMIN 2.9 G/DL (3.4-5.0); ANION GAP 8 (8-16); BLOOD UREA NITROGEN 128 MG/DL (7-18); CALCIUM 7.6 MG/DL (8.5-10.1); CHLORIDE 97 MMOL/L (99-107); CREATININE 4.13 MG/DL (0.40-0.90); GLUCOSE 268 MG/DL (70-104); PHOSPHORUS 7.9 MG/DL (2.3-4.5); POTASSIUM 4.8 MMOL/L (3.5-5.1); SODIUM 136 MMOL/L (135-145); TOTAL CARBON DIOXIDE 30.8 MMOL/L (24-32); eGFR 11 ML/MIN
[2017-08-14] MEDS: mirtazapine 15mg tablet PO SCH (20:36)
[2017-08-14] MEDS: Insulin Detemir pen SQ SCH (20:50)
[2017-08-14] MEDS ORDERED: warfarin 3mg tablet PO ONE (21:00)
[2017-08-14 21:37] LABS: MAGNESIUM 2.9 MG/DL (1.5-2.4)
[2017-08-15] VITALS (24 sets, daily range): BP systolic 96–134; BP diastolic 66–98
[2017-08-15 01:29] LABS: INR 1.8 INR; PROTHROMBIN TIME 18.4 SECONDS (9.0-12.0)
[2017-08-15 01:36] LABS: ALBUMIN 3.1 G/DL (3.4-5.0); ANION GAP 5 (8-16); BLOOD UREA NITROGEN 131 MG/DL (7-18); CALCIUM 7.8 MG/DL (8.5-10.1); CHLORIDE 97 MMOL/L (99-107); CREATININE 3.97 MG/DL (0.40-0.90); GLUCOSE 202 MG/DL (70-104); MAGNESIUM 3.1 MG/DL (1.5-2.4); PHOSPHORUS 8.1 MG/DL (2.3-4.5); POTASSIUM 4.4 MMOL/L (3.5-5.1); SODIUM 137 MMOL/L (135-145); TOTAL CARBON DIOXIDE 35.2 MMOL/L (24-32); eGFR 12 ML/MIN
[2017-08-15 01:56] LABS: BASOPHILS % (AUTO) 0 % (0-1); EOSINOPHILS # (AUTO) 0.1 X10'3 (0-0.9); EOSINOPHILS % (AUTO) 1.3 % (0-6); HEMATOCRIT 34.8 % (35.0-45.0); HEMOGLOBIN 11.1 g/dl (12.0-16.0); LYMPHOCYTES # (AUTO) 0.5 X10'3 (1.1-4.8); LYMPHOCYTES % (AUTO) 5.5 % (21-51); MEAN CORPUSCULAR HEMOGLOBIN 26.9 PG (27.0-31.0); MEAN CORPUSCULAR HGB CONC 31.9 % (33.0-36.5); MEAN CORPUSCULAR VOLUME 84.3 FL (78-98); MONOCYTES # (AUTO) 0.5 X10'3 (0-0.9); MONOCYTES % (AUTO) 5.6 % (2-12); NEUTROPHILS % (AUTO) 87.6 % (42-75); PLATELET COUNT 124 X10'3 (140-440); RED BLOOD COUNT 4.13 X10'6 (4.20-5.60); WHITE BLOOD COUNT 9.1 X10'3 (4.5-11.0)
[2017-08-15] MEDS: ipratropium/albuterol 3ml nebule NEB SCH ×6 (03:01→23:25)
[2017-08-15 04:40] LABS: ABG BASE EXCESS 4.2 mmol/L (-2.0-3.0); ABG HCO3 31.7 mmol/L (22.0-26.0); ABG OXYGEN SATURATION 89.4 % (95-98); ABG PCO2 (T) 59.4 mmHg (32.0-45.0); ABG PO2 (T) 56.7 mmHg (83-108); ALLEN'S TEST Positive; FCOHb 0.3 % (0.5-1.5); FLOW 4 L/min; FO2Hb 89.1 % (94-100); RESPIRATORY RATE (OBSERVED) 20 b/min
[2017-08-15] MEDS: traMADol 50MG tablet PO PRN ×3 (04:53→22:10)
[2017-08-15] MEDS: K and/or MAG REPLACEMENT MC SCH (06:34)
[2017-08-15] MEDS: fluticasone/vilanterol 200mcg/25mcg inhaler IH SCH (07:54)
[2017-08-15] MEDS ORDERED: spironolactone 25 MG tablet PO SCH (08:00)
[2017-08-15] MEDS: methylPREDNISolone sod succ/PF 40mg inj. IV SCH (08:06)
[2017-08-15] MEDS: cefTRIAXone 1g/NS 100ml IVPB 100 ML IV SCH (08:06)
[2017-08-15] MEDS: heparin, porcine 5000 units/ml vial SQ SCH ×2 (08:07→20:26)
[2017-08-15] MEDS: LACTOBACILLUS RHAMNOSUS GG 15 billion unit sprinkle caps PO SCH (08:09)
[2017-08-15] MEDS: pantoprazole 40mg Tablet.DR PO SCH (08:09)
[2017-08-15] MEDS: FLUoxetine 10mg capsule PO SCH ×3 (08:09→20:27)
[2017-08-15] MEDS: docusate sod 100mg capsule PO SCH ×2 (08:10→20:25)
[2017-08-15] MEDS: aspirin 81mg tab.chew PO SCH (08:10)
[2017-08-15] MEDS: gabapentin 300mg capsule PO SCH ×2 (08:10→13:23)
[2017-08-15] MEDS ORDERED: amiodarone 150mg/dext, iso-os 100 ML IV ONE (08:30)
[2017-08-15] MEDS: metolazone 2.5mg tablet PO SCH ×2 (08:44→15:27)
[2017-08-15] MEDS: insulin Lispro (HumaLOG) vial - multi-dose SQ SCH ×3 (08:48→22:16)
[2017-08-15 10:04] LABS: ANION GAP 7 (8-16); BLOOD UREA NITROGEN 128 MG/DL (7-18); BUN/CREATININE RATIO 34.6 (6.6-38.0); CHLORIDE 96 MMOL/L (99-107); GLUCOSE 275 MG/DL (70-104); MAGNESIUM 2.8 MG/DL (1.5-2.4); POTASSIUM 4.2 MMOL/L (3.5-5.1); SODIUM 136 MMOL/L (135-145); TOTAL CARBON DIOXIDE 33.5 MMOL/L (24-32); eGFR 13 ML/MIN
[2017-08-15] MEDS: amiodarone/D5 450MG/250ML BAG 250 ML IV SCH ×2 (10:35→17:43)
[2017-08-15] MEDS: clonazePAM 1mg tablet PO PRN ×2 (13:31→22:10)
[2017-08-15] MEDS: spironolactone 25 MG tablet PO SCH (15:27)
[2017-08-15] MEDS: furosemide inj 100 ML IV SCH (17:27)
[2017-08-15] MEDS: mirtazapine 15mg tablet PO SCH (20:27)
[2017-08-15] MEDS ORDERED: warfarin 4mg tablet PO ONE (21:00)
[2017-08-15 21:26] LABS: ALBUMIN 3.1 G/DL (3.4-5.0); ANION GAP 7 (8-16); BLOOD UREA NITROGEN 133 MG/DL (7-18); BUN/CREATININE RATIO 36.9 (6.6-38.0); CALCIUM 8.2 MG/DL (8.5-10.1); CHLORIDE 94 MMOL/L (99-107); GLUCOSE 283 MG/DL (70-104); MAGNESIUM 2.8 MG/DL (1.5-2.4); PHOSPHORUS 7.3 MG/DL (2.3-4.5); POTASSIUM 4.1 MMOL/L (3.5-5.1); SODIUM 136 MMOL/L (135-145); TOTAL CARBON DIOXIDE 34.8 MMOL/L (24-32); eGFR 13 ML/MIN
[2017-08-15] MEDS: Insulin Detemir pen SQ SCH (22:10)
[2017-08-16] VITALS (24 sets, daily range): BP systolic 83–133; BP diastolic 60–84
[2017-08-16] MEDS: spironolactone 25 MG tablet PO SCH ×3 (00:54→17:01)
[2017-08-16] MEDS: metolazone 2.5mg tablet PO SCH ×3 (00:54→17:01)
[2017-08-16 03:08] LABS: PROTHROMBIN TIME 20.1 SECONDS (9.0-12.0)
[2017-08-16 03:23] LABS: ALBUMIN 3.1 G/DL (3.4-5.0); ANION GAP 5 (8-16); BLOOD UREA NITROGEN 135 MG/DL (7-18); BUN/CREATININE RATIO 36.5 (6.6-38.0); CALCIUM 8.1 MG/DL (8.5-10.1); CHLORIDE 95 MMOL/L (99-107); GLUCOSE 245 MG/DL (70-104); MAGNESIUM 2.9 MG/DL (1.5-2.4); PHOSPHORUS 7.2 MG/DL (2.3-4.5); POTASSIUM 3.9 MMOL/L (3.5-5.1); SODIUM 137 MMOL/L (135-145); TOTAL CARBON DIOXIDE 36.7 MMOL/L (24-32); eGFR 13 ML/MIN
[2017-08-16] MEDS: ipratropium/albuterol 3ml nebule NEB SCH ×6 (04:04→23:04)
[2017-08-16] MEDS: pantoprazole 40mg Tablet.DR PO SCH (07:37)
[2017-08-16] MEDS: LACTOBACILLUS RHAMNOSUS GG 15 billion unit sprinkle caps PO SCH (07:37)
[2017-08-16] MEDS: clonazePAM 1mg tablet PO PRN ×2 (07:37→17:03)
[2017-08-16] MEDS: traMADol 50MG tablet PO PRN ×2 (07:37→17:04)
[2017-08-16] MEDS: cefTRIAXone 1g/NS 100ml IVPB 100 ML IV SCH (07:37)
[2017-08-16] MEDS: methylPREDNISolone sod succ/PF 40mg inj. IV SCH (07:38)
[2017-08-16] MEDS: aspirin 81mg tab.chew PO SCH (07:40)
[2017-08-16] MEDS: gabapentin 300mg capsule PO SCH ×2 (07:41→13:07)
[2017-08-16] MEDS: docusate sod 100mg capsule PO SCH ×2 (07:41→20:14)
[2017-08-16] MEDS: FLUoxetine 10mg capsule PO SCH ×3 (07:41→20:14)
[2017-08-16] MEDS: heparin, porcine 5000 units/ml vial SQ SCH ×2 (07:42→20:11)
[2017-08-16] MEDS: K and/or MAG REPLACEMENT MC SCH (08:00)
[2017-08-16] MEDS: fluticasone/vilanterol 200mcg/25mcg inhaler IH SCH (08:14)
[2017-08-16] MEDS: DOBUTamine-DoBUTrex 500mg/D5W 250 ML IV SCH ×2 (08:47→18:06)
[2017-08-16 09:24] LABS: ALBUMIN 3.1 G/DL (3.4-5.0); ANION GAP 7 (8-16); BLOOD UREA NITROGEN 133 MG/DL (7-18); CALCIUM 8.3 MG/DL (8.5-10.1); CHLORIDE 95 MMOL/L (99-107); GLUCOSE 172 MG/DL (70-104); MAGNESIUM 2.7 MG/DL (1.5-2.4); PHOSPHORUS 7.1 MG/DL (2.3-4.5); POTASSIUM 4.1 MMOL/L (3.5-5.1); SODIUM 138 MMOL/L (135-145); TOTAL CARBON DIOXIDE 36.4 MMOL/L (24-32); eGFR 13 ML/MIN
[2017-08-16] MEDS: amiodarone/D5 450MG/250ML BAG 250 ML IV SCH (09:34)
[2017-08-16] MEDS: insulin Lispro (HumaLOG) vial - multi-dose SQ SCH ×4 (09:37→22:36)
[2017-08-16] MEDS: sevelamer carbonate 800mg tablet PO SCH ×2 (13:07→17:01)
[2017-08-16 13:54] LABS: ALBUMIN 3.1 G/DL (3.4-5.0); ANION GAP 6 (8-16); BLOOD UREA NITROGEN 138 MG/DL (7-18); BUN/CREATININE RATIO 38.3 (6.6-38.0); CALCIUM 8.1 MG/DL (8.5-10.1); CHLORIDE 93 MMOL/L (99-107); GLUCOSE 290 MG/DL (70-104); MAGNESIUM 2.7 MG/DL (1.5-2.4); PHOSPHORUS 6.6 MG/DL (2.3-4.5); POTASSIUM 4.2 MMOL/L (3.5-5.1); SODIUM 136 MMOL/L (135-145); eGFR 13 ML/MIN
[2017-08-16] MEDS: Insulin Detemir pen SQ SCH (20:03)
[2017-08-16] MEDS: mirtazapine 15mg tablet PO SCH (20:20)
[2017-08-16] MEDS ORDERED: warfarin 4mg tablet PO ONE (21:00)
[2017-08-16 21:47] LABS: ALBUMIN 2.9 G/DL (3.4-5.0); ANION GAP 6 (8-16); BLOOD UREA NITROGEN 135 MG/DL (7-18); BUN/CREATININE RATIO 37.5 (6.6-38.0); CHLORIDE 93 MMOL/L (99-107); GLUCOSE 301 MG/DL (70-104); PHOSPHORUS 5.9 MG/DL (2.3-4.5); SODIUM 137 MMOL/L (135-145); TOTAL CARBON DIOXIDE 37.9 MMOL/L (24-32); eGFR 13 ML/MIN
[2017-08-17] VITALS (23 sets, daily range): BP systolic 83–123; BP diastolic 57–92
[2017-08-17] MEDS: amiodarone/D5 450MG/250ML BAG 250 ML IV SCH ×2 (01:28→15:47)
[2017-08-17] MEDS: clonazePAM 1mg tablet PO PRN ×2 (01:29→20:14)
[2017-08-17] MEDS: spironolactone 25 MG tablet PO SCH ×2 (01:29→09:02)
[2017-08-17] MEDS: traMADol 50MG tablet PO PRN ×2 (01:29→20:14)
[2017-08-17] MEDS: metolazone 2.5mg tablet PO SCH (01:31)
[2017-08-17] MEDS: furosemide inj 100 ML IV SCH (01:34)
[2017-08-17] MEDS: ipratropium/albuterol 3ml nebule NEB SCH ×6 (03:08→22:56)
[2017-08-17 03:44] LABS: BASOPHILS % (AUTO) 0.3 % (0-1); EOSINOPHILS # (AUTO) 0.3 X10'3 (0-0.9); EOSINOPHILS % (AUTO) 2.5 % (0-6); HEMATOCRIT 33.9 % (35.0-45.0); HEMOGLOBIN 10.8 g/dl (12.0-16.0); MEAN CORPUSCULAR HEMOGLOBIN 26.6 PG (27.0-31.0); MEAN CORPUSCULAR HGB CONC 31.9 % (33.0-36.5); MEAN CORPUSCULAR VOLUME 83.2 FL (78-98); MEAN PLATELET VOLUME 8.6 FL (7.4-10.4); MONOCYTES # (AUTO) 0.5 X10'3 (0-0.9); MONOCYTES % (AUTO) 5.4 % (2-12); NEUTROPHILS # (AUTO) 8.2 X10'3 (1.8-7.7); NEUTROPHILS % (AUTO) 81.8 % (42-75); PLATELET COUNT 107 X10'3 (140-440); RED BLOOD COUNT 4.07 X10'6 (4.20-5.60); RED CELL DISTRIBUTION WIDTH 19.3 % (11.5-14.5); WHITE BLOOD COUNT 10.1 X10'3 (4.5-11.0)
[2017-08-17 03:53] LABS: INR 1.9 INR
[2017-08-17 03:58] LABS: ALANINE AMINOTRANSFERASE 39 U/L (12-78); ALKALINE PHOSPHATASE 148 IU/L (46-116); ASPARTATE AMINO TRANSFERASE 18 U/L (10-37); BILIRUBIN,TOTAL 0.4 MG/DL (0.1-1.0); BLOOD UREA NITROGEN 136 MG/DL (7-18); BUN/CREATININE RATIO 38.9 (6.6-38.0); CALCIUM 8.1 MG/DL (8.5-10.1); CHLORIDE 93 MMOL/L (99-107); GLUCOSE 240 MG/DL (70-104); MAGNESIUM 2.5 MG/DL (1.5-2.4); PHOSPHORUS 5.7 MG/DL (2.3-4.5); POTASSIUM 3.8 MMOL/L (3.5-5.1); SODIUM 136 MMOL/L (135-145); eGFR 13 ML/MIN
[2017-08-17 04:00] LABS: ANION GAP 4 (8-16); TOTAL CARBON DIOXIDE 39 MMOL/L (24-32)
[2017-08-17] MEDS: DOBUTamine-DoBUTrex 500mg/D5W 250 ML IV SCH ×2 (05:24→20:12)
[2017-08-17] MEDS: K and/or MAG REPLACEMENT MC SCH (08:00)
[2017-08-17] MEDS: fluticasone/vilanterol 200mcg/25mcg inhaler IH SCH (08:19)
[2017-08-17] MEDS: methylPREDNISolone sod succ/PF 40mg inj. IV SCH (09:01)
[2017-08-17] MEDS: aspirin 81mg tab.chew PO SCH (09:01)
[2017-08-17] MEDS: gabapentin 300mg capsule PO SCH ×2 (09:01→13:36)
[2017-08-17] MEDS: FLUoxetine 10mg capsule PO SCH ×3 (09:01→20:14)
[2017-08-17] MEDS: docusate sod 100mg capsule PO SCH ×2 (09:02→20:14)
[2017-08-17] MEDS: sevelamer carbonate 800mg tablet PO SCH ×2 (09:02→20:16)
[2017-08-17] MEDS: cefTRIAXone 1g/NS 100ml IVPB 100 ML IV SCH (09:03)
[2017-08-17] MEDS: heparin, porcine 5000 units/ml vial SQ SCH ×2 (09:03→20:13)
[2017-08-17] MEDS: pantoprazole 40mg Tablet.DR PO SCH (09:05)
[2017-08-17] MEDS: LACTOBACILLUS RHAMNOSUS GG 15 billion unit sprinkle caps PO SCH (09:05)
[2017-08-17] MEDS: insulin Lispro (HumaLOG) vial - multi-dose SQ SCH ×4 (09:20→20:58)
[2017-08-17 13:05] LABS: ALBUMIN 3.3 G/DL (3.4-5.0); ANION GAP 5 (8-16); BLOOD UREA NITROGEN 133 MG/DL (7-18); BUN/CREATININE RATIO 40.3 (6.6-38.0); CALCIUM 8.7 MG/DL (8.5-10.1); CHLORIDE 91 MMOL/L (99-107); GLUCOSE 142 MG/DL (70-104); PHOSPHORUS 5.6 MG/DL (2.3-4.5); POTASSIUM 4.2 MMOL/L (3.5-5.1); SODIUM 140 MMOL/L (135-145); eGFR 14 ML/MIN
[2017-08-17 13:08] LABS: TOTAL CARBON DIOXIDE 44.1 MMOL/L (24-32)
[2017-08-17] MEDS: lactulose 20gm/30ml cup PO SCH ×3 (13:36→17:26)
[2017-08-17 18:07] LABS: ALBUMIN 1.7 G/DL (3.4-5.0); ANION GAP 9 (8-16); BLOOD UREA NITROGEN 90 MG/DL (7-18); CHLORIDE 111 MMOL/L (99-107); GLUCOSE 145 MG/DL (70-104); PHOSPHORUS 3.5 MG/DL (2.3-4.5); SODIUM 149 MMOL/L (135-145); TOTAL CARBON DIOXIDE 29.3 MMOL/L (24-32); eGFR 29 ML/MIN
[2017-08-17 18:11] LABS: POTASSIUM 2.5 MMOL/L (3.5-5.1)
[2017-08-17 18:12] LABS: CALCIUM 5.4 MG/DL (8.5-10.1)
[2017-08-17 19:50] LABS: ALBUMIN 3.2 G/DL (3.4-5.0); ANION GAP 6 (8-16); BLOOD UREA NITROGEN 135 MG/DL (7-18); BUN/CREATININE RATIO 39.7 (6.6-38.0); CALCIUM 8.5 MG/DL (8.5-10.1); CHLORIDE 91 MMOL/L (99-107); GLUCOSE 271 MG/DL (70-104); PHOSPHORUS 5.7 MG/DL (2.3-4.5); POTASSIUM 4.2 MMOL/L (3.5-5.1); SODIUM 139 MMOL/L (135-145); eGFR 14 ML/MIN
[2017-08-17 19:56] LABS: TOTAL CARBON DIOXIDE 42.5 MMOL/L (24-32)
[2017-08-17] MEDS: mirtazapine 15mg tablet PO SCH (20:14)
[2017-08-17] MEDS: Insulin Detemir pen SQ SCH (20:59)
[2017-08-17] MEDS ORDERED: warfarin 5mg tablet PO ONE (21:00)
[2017-08-18] VITALS (23 sets, daily range): BP systolic 85–144; BP diastolic 56–93
[2017-08-18 01:45] LABS: INR 1.7 INR; PROTHROMBIN TIME 17.4 SECONDS (9.0-12.0)
[2017-08-18 01:49] LABS: ALANINE AMINOTRANSFERASE 39 U/L (12-78); ALBUMIN 3.1 G/DL (3.4-5.0); ALBUMIN/GLOBULIN RATIO 0.9 (1.1-1.5); ALKALINE PHOSPHATASE 139 IU/L (46-116); ASPARTATE AMINO TRANSFERASE 24 U/L (10-37); BILIRUBIN,TOTAL 0.5 MG/DL (0.1-1.0); BLOOD UREA NITROGEN 134 MG/DL (7-18); BUN/CREATININE RATIO 38.3 (6.6-38.0); CALCIUM 8.4 MG/DL (8.5-10.1); CHLORIDE 91 MMOL/L (99-107); GLUCOSE 181 MG/DL (70-104); MAGNESIUM 2.5 MG/DL (1.5-2.4); PHOSPHORUS 5.4 MG/DL (2.3-4.5); SODIUM 139 MMOL/L (135-145); TOTAL PROTEIN 6.4 G/DL (6.4-8.2); eGFR 13 ML/MIN
[2017-08-18 01:50] LABS: ANION GAP 4 (8-16); BASOPHILS # (AUTO) 0.1 X10'3 (0-0.2); BASOPHILS % (AUTO) 0.6 % (0-1); EOSINOPHILS # (AUTO) 0.3 X10'3 (0-0.9); EOSINOPHILS % (AUTO) 2.9 % (0-6); HEMATOCRIT 35.4 % (35.0-45.0); HEMOGLOBIN 11.3 g/dl (12.0-16.0); LYMPHOCYTES # (AUTO) 1.1 X10'3 (1.1-4.8); LYMPHOCYTES % (AUTO) 9.7 % (21-51); MEAN CORPUSCULAR HEMOGLOBIN 26.2 PG (27.0-31.0); MEAN CORPUSCULAR HGB CONC 31.8 % (33.0-36.5); MEAN CORPUSCULAR VOLUME 82.5 FL (78-98); MEAN PLATELET VOLUME 9.6 FL (7.4-10.4); MONOCYTES # (AUTO) 0.5 X10'3 (0-0.9); MONOCYTES % (AUTO) 4.3 % (2-12); NEUTROPHILS # (AUTO) 9.7 X10'3 (1.8-7.7); NEUTROPHILS % (AUTO) 82.5 % (42-75); PLATELET COUNT 104 X10'3 (140-440); RED BLOOD COUNT 4.29 X10'6 (4.20-5.60); WHITE BLOOD COUNT 11.7 X10'3 (4.5-11.0)
[2017-08-18 01:51] LABS: TOTAL CARBON DIOXIDE 44.1 MMOL/L (24-32)
[2017-08-18] MEDS: DOBUTamine-DoBUTrex 500mg/D5W 250 ML IV SCH ×2 (02:04→12:47)
[2017-08-18] MEDS: ipratropium/albuterol 3ml nebule NEB SCH ×6 (02:55→23:11)
[2017-08-18] MEDS: traMADol 50MG tablet PO PRN ×3 (05:19→20:20)
[2017-08-18] MEDS: clonazePAM 1mg tablet PO PRN ×3 (05:19→20:20)
[2017-08-18] MEDS: amiodarone/D5 450MG/250ML BAG 250 ML IV SCH ×2 (07:18→23:38)
[2017-08-18] MEDS: K and/or MAG REPLACEMENT MC SCH (08:00)
[2017-08-18] MEDS: fluticasone/vilanterol 200mcg/25mcg inhaler IH SCH (08:03)
[2017-08-18] MEDS: spironolactone 25 MG tablet PO SCH (08:45)
[2017-08-18] MEDS: pantoprazole 40mg Tablet.DR PO SCH (08:45)
[2017-08-18] MEDS: LACTOBACILLUS RHAMNOSUS GG 15 billion unit sprinkle caps PO SCH (08:45)
[2017-08-18] MEDS: gabapentin 300mg capsule PO SCH ×2 (08:45→14:44)
[2017-08-18] MEDS: aspirin 81mg tab.chew PO SCH (08:45)
[2017-08-18] MEDS: methylPREDNISolone sod succ/PF 40mg inj. IV SCH (08:45)
[2017-08-18] MEDS: FLUoxetine 10mg capsule PO SCH ×3 (08:45→20:19)
[2017-08-18] MEDS: docusate sod 100mg capsule PO SCH ×2 (08:45→20:17)
[2017-08-18] MEDS: sevelamer carbonate 800mg tablet PO SCH ×2 (08:46→17:50)
[2017-08-18] MEDS: cefTRIAXone 1g/NS 100ml IVPB 100 ML IV SCH (08:46)
[2017-08-18] MEDS: heparin, porcine 5000 units/ml vial SQ SCH ×2 (08:46→20:19)
[2017-08-18 09:03] LABS: ALBUMIN 3.2 G/DL (3.4-5.0); ANION GAP 5 (8-16); BLOOD UREA NITROGEN 125 MG/DL (7-18); BUN/CREATININE RATIO 37.9 (6.6-38.0); CALCIUM 8.7 MG/DL (8.5-10.1); CHLORIDE 90 MMOL/L (99-107); GLUCOSE 158 MG/DL (70-104); MAGNESIUM 2.2 MG/DL (1.5-2.4); PHOSPHORUS 5.3 MG/DL (2.3-4.5); SODIUM 140 MMOL/L (135-145); eGFR 14 ML/MIN
[2017-08-18] MEDS: insulin Lispro (HumaLOG) vial - multi-dose SQ SCH ×3 (09:04→19:28)
[2017-08-18 09:08] LABS: TOTAL CARBON DIOXIDE 44.6 MMOL/L (24-32)
[2017-08-18] MEDS: bisacodyl 10mg suppository rectal RC PRN (11:14)
[2017-08-18] MEDS: lactulose 20gm/30ml cup PO SCH ×3 (12:50→17:49)
[2017-08-18] MEDS: furosemide 40mg/4ml inj IV SCH ×2 (14:42→20:17)
[2017-08-18] MEDS ORDERED: lactulose 20gm/30ml cup PO ONE (17:01)
[2017-08-18] MEDS: mirtazapine 15mg tablet PO SCH (20:19)
[2017-08-18] MEDS ORDERED: warfarin 3mg tablet PO ONE (21:00)
[2017-08-18] MEDS: Insulin Detemir pen SQ SCH (21:14)
[2017-08-19] VITALS (23 sets, daily range): BP systolic 77–107; BP diastolic 56–81
[2017-08-19] MEDS: furosemide 40mg/4ml inj IV SCH ×4 (02:55→21:54)
[2017-08-19] MEDS: ipratropium/albuterol 3ml nebule NEB SCH ×6 (02:59→23:08)
[2017-08-19] MEDS: DOBUTamine-DoBUTrex 500mg/D5W 250 ML IV SCH ×2 (03:01→08:12)
[2017-08-19 04:27] LABS: BASOPHILS % (AUTO) 0.3 % (0-1); EOSINOPHILS # (AUTO) 0.5 X10'3 (0-0.9); EOSINOPHILS % (AUTO) 4.4 % (0-6); HEMATOCRIT 32.6 % (35.0-45.0); HEMOGLOBIN 10.4 g/dl (12.0-16.0); LYMPHOCYTES # (AUTO) 1.1 X10'3 (1.1-4.8); LYMPHOCYTES % (AUTO) 10.5 % (21-51); MEAN CORPUSCULAR HEMOGLOBIN 26.7 PG (27.0-31.0); MEAN CORPUSCULAR HGB CONC 31.8 % (33.0-36.5); MEAN PLATELET VOLUME 9.1 FL (7.4-10.4); MONOCYTES # (AUTO) 0.6 X10'3 (0-0.9); MONOCYTES % (AUTO) 5.4 % (2-12); NEUTROPHILS # (AUTO) 8.6 X10'3 (1.8-7.7); NEUTROPHILS % (AUTO) 79.4 % (42-75); PLATELET COUNT 86 X10'3 (140-440); RED BLOOD COUNT 3.88 X10'6 (4.20-5.60); RED CELL DISTRIBUTION WIDTH 19.2 % (11.5-14.5); WHITE BLOOD COUNT 10.8 X10'3 (4.5-11.0)
[2017-08-19 04:38] LABS: INR 1.8 INR; PROTHROMBIN TIME 18.7 SECONDS (9.0-12.0)
[2017-08-19 04:41] LABS: ALANINE AMINOTRANSFERASE 32 U/L (12-78); ALBUMIN 2.8 G/DL (3.4-5.0); ALBUMIN/GLOBULIN RATIO 0.8 (1.1-1.5); ALKALINE PHOSPHATASE 110 IU/L (46-116); ASPARTATE AMINO TRANSFERASE 19 U/L (10-37); BILIRUBIN,TOTAL 0.9 MG/DL (0.1-1.0); BLOOD UREA NITROGEN 115 MG/DL (7-18); BUN/CREATININE RATIO 39.7 (6.6-38.0); CALCIUM 8.1 MG/DL (8.5-10.1); CHLORIDE 82 MMOL/L (99-107); GLUCOSE 387 MG/DL (70-104); POTASSIUM 3.6 MMOL/L (3.5-5.1); SODIUM 131 MMOL/L (135-145); TOTAL PROTEIN 6.1 G/DL (6.4-8.2); eGFR 17 ML/MIN
[2017-08-19 04:44] LABS: ANION GAP 5 (8-16); TOTAL CARBON DIOXIDE 44.1 MMOL/L (24-32)
[2017-08-19] MEDS: traMADol 50MG tablet PO PRN ×3 (05:48→21:41)
[2017-08-19] MEDS: clonazePAM 1mg tablet PO PRN (05:49)
[2017-08-19] MEDS: fluticasone/vilanterol 200mcg/25mcg inhaler IH SCH (07:22)
[2017-08-19] MEDS: K and/or MAG REPLACEMENT MC SCH (08:00)
[2017-08-19] MEDS: prednisone 10mg tablet PO SCH (08:09)
[2017-08-19] MEDS: gabapentin 300mg capsule PO SCH ×2 (08:09→13:07)
[2017-08-19] MEDS: docusate sod 100mg capsule PO SCH ×2 (08:09→21:53)
[2017-08-19] MEDS: LACTOBACILLUS RHAMNOSUS GG 15 billion unit sprinkle caps PO SCH (08:09)
[2017-08-19] MEDS: pantoprazole 40mg Tablet.DR PO SCH (08:09)
[2017-08-19] MEDS: aspirin 81mg tab.chew PO SCH (08:09)
[2017-08-19] MEDS: spironolactone 25 MG tablet PO SCH (08:09)
[2017-08-19] MEDS: FLUoxetine 10mg capsule PO SCH ×3 (08:09→21:53)
[2017-08-19] MEDS: heparin, porcine 5000 units/ml vial SQ SCH ×2 (08:09→21:55)
[2017-08-19] MEDS: sevelamer carbonate 800mg tablet PO SCH ×2 (08:12→17:12)
[2017-08-19] MEDS ORDERED: digoxin 250mcg (0.25mg) tablet PO ONE (08:50)
[2017-08-19] MEDS: insulin Lispro (HumaLOG) vial - multi-dose SQ SCH ×2 (09:16→13:49)
[2017-08-19] MEDS: acetaZOLAMIDE IV 500mg inj IV SCH ×2 (13:09→21:53)
[2017-08-19] MEDS: amiodarone/D5 450MG/250ML BAG 250 ML IV SCH (14:56)
[2017-08-19] MEDS: Insulin Detemir pen SQ SCH (21:00)
[2017-08-19] MEDS ORDERED: warfarin 3mg tablet PO ONE (21:00)
[2017-08-19] MEDS: mirtazapine 15mg tablet PO SCH (21:54)
[2017-08-20] VITALS (25 sets, daily range): BP systolic 85–115; BP diastolic 60–86
[2017-08-20] MEDS: furosemide 40mg/4ml inj IV SCH ×4 (03:10→19:16)
[2017-08-20] MEDS: ipratropium/albuterol 3ml nebule NEB SCH ×6 (03:13→23:19)
[2017-08-20 05:11] LABS: BASOPHILS # (AUTO) 0.1 X10'3 (0-0.2); BASOPHILS % (AUTO) 0.5 % (0-1); EOSINOPHILS # (AUTO) 0.5 X10'3 (0-0.9); EOSINOPHILS % (AUTO) 4.6 % (0-6); HEMATOCRIT 34.3 % (35.0-45.0); HEMOGLOBIN 10.8 g/dl (12.0-16.0); LYMPHOCYTES # (AUTO) 1.8 X10'3 (1.1-4.8); LYMPHOCYTES % (AUTO) 15.5 % (21-51); MEAN CORPUSCULAR HEMOGLOBIN 26.6 PG (27.0-31.0); MEAN CORPUSCULAR HGB CONC 31.6 % (33.0-36.5); MEAN CORPUSCULAR VOLUME 84.2 FL (78-98); MEAN PLATELET VOLUME 9.7 FL (7.4-10.4); MONOCYTES # (AUTO) 0.6 X10'3 (0-0.9); MONOCYTES % (AUTO) 5.4 % (2-12); NEUTROPHILS # (AUTO) 8.7 X10'3 (1.8-7.7); PLATELET COUNT 98 X10'3 (140-440); RED BLOOD COUNT 4.07 X10'6 (4.20-5.60); RED CELL DISTRIBUTION WIDTH 19.4 % (11.5-14.5); WHITE BLOOD COUNT 11.8 X10'3 (4.5-11.0)
[2017-08-20 05:24] LABS: ALBUMIN 3.1 G/DL (3.4-5.0); BLOOD UREA NITROGEN 121 MG/DL (7-18); CALCIUM 8.7 MG/DL (8.5-10.1); CHLORIDE 88 MMOL/L (99-107); GLUCOSE 113 MG/DL (70-104); MAGNESIUM 2.2 MG/DL (1.5-2.4); POTASSIUM 3.6 MMOL/L (3.5-5.1); SODIUM 138 MMOL/L (135-145); eGFR 15 ML/MIN
[2017-08-20 05:47] LABS: ANION GAP 3 (8-16)
[2017-08-20 05:48] LABS: INR 1.7 INR; PROTHROMBIN TIME 17.1 SECONDS (9.0-12.0)
[2017-08-20] MEDS: fluticasone/vilanterol 200mcg/25mcg inhaler IH SCH (07:37)
[2017-08-20] MEDS: sevelamer carbonate 800mg tablet PO SCH ×2 (07:51→16:49)
[2017-08-20] MEDS: LACTOBACILLUS RHAMNOSUS GG 15 billion unit sprinkle caps PO SCH (07:51)
[2017-08-20] MEDS: pantoprazole 40mg Tablet.DR PO SCH (07:51)
[2017-08-20] MEDS: clonazePAM 1mg tablet PO PRN ×3 (07:54→23:47)
[2017-08-20] MEDS: traMADol 50MG tablet PO PRN ×3 (07:55→23:47)
[2017-08-20] MEDS: amiodarone/D5 450MG/250ML BAG 250 ML IV SCH (07:58)
[2017-08-20] MEDS: K and/or MAG REPLACEMENT MC SCH (08:00)
[2017-08-20] MEDS: heparin, porcine 5000 units/ml vial SQ SCH ×2 (08:00→19:18)
[2017-08-20] MEDS: spironolactone 25 MG tablet PO SCH (08:00)
[2017-08-20] MEDS: aspirin 81mg tab.chew PO SCH (08:45)
[2017-08-20] MEDS: docusate sod 100mg capsule PO SCH ×2 (08:45→19:17)
[2017-08-20] MEDS: gabapentin 300mg capsule PO SCH ×2 (08:46→13:43)
[2017-08-20] MEDS: digoxin 125mcg (0.125mg) tablet PO SCH (08:46)
[2017-08-20] MEDS: prednisone 10mg tablet PO SCH (08:46)
[2017-08-20] MEDS: FLUoxetine 10mg capsule PO SCH ×3 (08:47→20:46)
[2017-08-20] MEDS: acetaZOLAMIDE IV 500mg inj IV SCH ×3 (08:48→20:49)
[2017-08-20] MEDS: insulin Lispro (HumaLOG) vial - multi-dose SQ SCH ×3 (09:15→19:24)
[2017-08-20 10:49] LABS: ALANINE AMINOTRANSFERASE 32 U/L (12-78); ALBUMIN/GLOBULIN RATIO 0.9 (1.1-1.5); ALKALINE PHOSPHATASE 108 IU/L (46-116); ASPARTATE AMINO TRANSFERASE 22 U/L (10-37); BILIRUBIN,DIRECT 0.3 MG/DL (0-0.3); BILIRUBIN,TOTAL 1.3 MG/DL (0.1-1.0); TOTAL PROTEIN 6.6 G/DL (6.4-8.2)
[2017-08-20] MEDS: amiodarone 200mg tablet PO SCH (19:17)
[2017-08-20] MEDS: Insulin Detemir pen SQ SCH (20:45)
[2017-08-20] MEDS: mirtazapine 15mg tablet PO SCH (20:46)
[2017-08-20] MEDS ORDERED: warfarin 3mg tablet PO ONE (21:00)
[2017-08-21] VITALS (14 sets, daily range): BP systolic 81–119; BP diastolic 43–75
[2017-08-21] MEDS: furosemide 40mg/4ml inj IV SCH ×2 (01:46→07:59)
[2017-08-21] MEDS: ipratropium/albuterol 3ml nebule NEB SCH ×5 (03:28→19:18)
[2017-08-21 05:24] LABS: BASOPHILS # (AUTO) 0.1 X10'3 (0-0.2); BASOPHILS % (AUTO) 0.7 % (0-1); EOSINOPHILS # (AUTO) 0.6 X10'3 (0-0.9); EOSINOPHILS % (AUTO) 5.5 % (0-6); HEMOGLOBIN 10.8 g/dl (12.0-16.0); LYMPHOCYTES # (AUTO) 1.7 X10'3 (1.1-4.8); LYMPHOCYTES % (AUTO) 16.6 % (21-51); MEAN CORPUSCULAR HEMOGLOBIN 26.8 PG (27.0-31.0); MEAN CORPUSCULAR HGB CONC 31.7 % (33.0-36.5); MEAN CORPUSCULAR VOLUME 84.4 FL (78-98); MEAN PLATELET VOLUME 10.5 FL (7.4-10.4); MONOCYTES # (AUTO) 0.9 X10'3 (0-0.9); MONOCYTES % (AUTO) 8.7 % (2-12); NEUTROPHILS % (AUTO) 68.5 % (42-75); PLATELET COUNT 108 X10'3 (140-440); RED BLOOD COUNT 4.02 X10'6 (4.20-5.60); RED CELL DISTRIBUTION WIDTH 19.9 % (11.5-14.5); WHITE BLOOD COUNT 10.2 X10'3 (4.5-11.0)
[2017-08-21 05:54] LABS: ALANINE AMINOTRANSFERASE 34 U/L (12-78); ALBUMIN/GLOBULIN RATIO 0.8 (1.1-1.5); ALKALINE PHOSPHATASE 112 IU/L (46-116); ASPARTATE AMINO TRANSFERASE 22 U/L (10-37); BILIRUBIN,TOTAL 1.1 MG/DL (0.1-1.0); BLOOD UREA NITROGEN 118 MG/DL (7-18); BUN/CREATININE RATIO 38.1 (6.6-38.0); CHLORIDE 90 MMOL/L (99-107); GLUCOSE 104 MG/DL (70-104); MAGNESIUM 2.1 MG/DL (1.5-2.4); PHOSPHORUS 5.7 MG/DL (2.3-4.5); POTASSIUM 3.3 MMOL/L (3.5-5.1); SODIUM 139 MMOL/L (135-145); TOTAL PROTEIN 6.8 G/DL (6.4-8.2); eGFR 15 ML/MIN
[2017-08-21 06:30] LABS: ANION GAP 6 (8-16)
[2017-08-21 06:35] LABS: TOTAL CARBON DIOXIDE 42.8 MMOL/L (24-32)
[2017-08-21 07:26] LABS: INR 1.8 INR
[2017-08-21] MEDS: clonazePAM 1mg tablet PO PRN ×2 (07:56→16:54)
[2017-08-21] MEDS: digoxin 125mcg (0.125mg) tablet PO SCH (07:57)
[2017-08-21] MEDS: pantoprazole 40mg Tablet.DR PO SCH (07:57)
[2017-08-21] MEDS: traMADol 50MG tablet PO PRN ×2 (07:57→16:58)
[2017-08-21] MEDS: LACTOBACILLUS RHAMNOSUS GG 15 billion unit sprinkle caps PO SCH (07:57)
[2017-08-21] MEDS: docusate sod 100mg capsule PO SCH ×2 (07:57→20:21)
[2017-08-21] MEDS: amiodarone 200mg tablet PO SCH ×2 (07:58→20:21)
[2017-08-21] MEDS: prednisone 10mg tablet PO SCH (07:58)
[2017-08-21] MEDS: sevelamer carbonate 800mg tablet PO SCH ×2 (07:58→17:44)
[2017-08-21] MEDS: spironolactone 25 MG tablet PO SCH (07:58)
[2017-08-21] MEDS: gabapentin 300mg capsule PO SCH ×2 (07:58→14:24)
[2017-08-21] MEDS: aspirin 81mg tab.chew PO SCH (07:58)
[2017-08-21] MEDS: FLUoxetine 10mg capsule PO SCH ×3 (07:58→20:22)
[2017-08-21] MEDS: heparin, porcine 5000 units/ml vial SQ SCH ×2 (07:59→20:00)
[2017-08-21] MEDS: acetaZOLAMIDE IV 500mg inj IV SCH ×3 (07:59→20:20)
[2017-08-21] MEDS: K and/or MAG REPLACEMENT MC SCH (08:00)
[2017-08-21] MEDS: fluticasone/vilanterol 200mcg/25mcg inhaler IH SCH (08:01)
[2017-08-21] MEDS: insulin Lispro (HumaLOG) vial - multi-dose SQ SCH ×3 (08:18→18:54)
[2017-08-21] MEDS ORDERED: magnesium Cl slow-release 64mg tablet PO PRN (10:30)
[2017-08-21] MEDS ORDERED: potassium Cl 20 mEq SR tablet PO PRN (10:30)
[2017-08-21] MEDS: potassium Cl 20 mEq SR tablet PO PRN ×2 (14:25→20:21)
[2017-08-21] MEDS: furosemide 40mg tablet PO SCH (20:21)
[2017-08-21] MEDS: mirtazapine 15mg tablet PO SCH (20:22)
[2017-08-21] MEDS ORDERED: warfarin 3mg tablet PO ONE (21:00)
[2017-08-21] MEDS: Insulin Detemir pen SQ SCH (21:09)
[2017-08-22 03:00] VITALS: BP 99/65
[2017-08-22] MEDS: ipratropium/albuterol 3ml nebule NEB SCH ×6 (03:11→23:40)
[2017-08-22 05:42] LABS: BASOPHILS % (AUTO) 0.3 % (0-1); EOSINOPHILS # (AUTO) 0.6 X10'3 (0-0.9); HEMATOCRIT 33.4 % (35.0-45.0); HEMOGLOBIN 10.5 g/dl (12.0-16.0); LYMPHOCYTES % (AUTO) 17.1 % (21-51); MEAN CORPUSCULAR HEMOGLOBIN 26.7 PG (27.0-31.0); MEAN CORPUSCULAR HGB CONC 31.5 % (33.0-36.5); MEAN CORPUSCULAR VOLUME 84.8 FL (78-98); MEAN PLATELET VOLUME 9.7 FL (7.4-10.4); MONOCYTES # (AUTO) 0.7 X10'3 (0-0.9); MONOCYTES % (AUTO) 6.3 % (2-12); NEUTROPHILS # (AUTO) 8.3 X10'3 (1.8-7.7); NEUTROPHILS % (AUTO) 71.3 % (42-75); PLATELET COUNT 120 X10'3 (140-440); RED BLOOD COUNT 3.93 X10'6 (4.20-5.60); RED CELL DISTRIBUTION WIDTH 19.4 % (11.5-14.5); WHITE BLOOD COUNT 11.7 X10'3 (4.5-11.0)
[2017-08-22 05:44] LABS: PROTHROMBIN TIME 20.1 SECONDS (9.0-12.0)
[2017-08-22 05:58] LABS: ALBUMIN 3.1 G/DL (3.4-5.0); BLOOD UREA NITROGEN 115 MG/DL (7-18); BUN/CREATININE RATIO 34.8 (6.6-38.0); CALCIUM 8.7 MG/DL (8.5-10.1); CHLORIDE 91 MMOL/L (99-107); GLUCOSE 97 MG/DL (70-104); POTASSIUM 3.7 MMOL/L (3.5-5.1); SODIUM 142 MMOL/L (135-145); eGFR 14 ML/MIN
[2017-08-22 06:59] LABS: ANION GAP 9 (8-16)
[2017-08-22 07:00] VITALS: BP 103/57
[2017-08-22] MEDS: fluticasone/vilanterol 200mcg/25mcg inhaler IH SCH (07:01)
[2017-08-22 07:10] LABS: MAGNESIUM 2.3 MG/DL (1.5-2.4); PHOSPHORUS 5.2 MG/DL (2.3-4.5); TOTAL CARBON DIOXIDE 41.8 MMOL/L (24-32)
[2017-08-22] MEDS: spironolactone 25 MG tablet PO SCH (07:21)
[2017-08-22] MEDS: docusate sod 100mg capsule PO SCH ×2 (07:21→20:03)
[2017-08-22] MEDS: furosemide 40mg tablet PO SCH ×2 (07:22→20:04)
[2017-08-22] MEDS: aspirin 81mg tab.chew PO SCH (07:22)
[2017-08-22] MEDS: digoxin 125mcg (0.125mg) tablet PO SCH (07:22)
[2017-08-22] MEDS: amiodarone 200mg tablet PO SCH ×2 (07:23→20:03)
[2017-08-22] MEDS: gabapentin 300mg capsule PO SCH ×2 (07:23→13:57)
[2017-08-22] MEDS: pantoprazole 40mg Tablet.DR PO SCH (07:23)
[2017-08-22] MEDS: FLUoxetine 10mg capsule PO SCH ×3 (07:23→20:04)
[2017-08-22] MEDS: sevelamer carbonate 800mg tablet PO SCH ×2 (07:23→17:24)
[2017-08-22] MEDS: acetaZOLAMIDE IV 500mg inj IV SCH ×2 (07:24→12:28)
[2017-08-22] MEDS: prednisone 10mg tablet PO SCH (07:24)
[2017-08-22] MEDS: heparin, porcine 5000 units/ml vial SQ SCH ×2 (07:27→20:00)
[2017-08-22] MEDS: K and/or MAG REPLACEMENT MC SCH (07:28)
[2017-08-22] MEDS: LACTOBACILLUS RHAMNOSUS GG 15 billion unit sprinkle caps PO SCH (07:30)
[2017-08-22] MEDS: insulin Lispro (HumaLOG) vial - multi-dose SQ SCH ×3 (08:34→19:25)
[2017-08-22] MEDS: traMADol 50MG tablet PO PRN ×2 (08:37→17:25)
[2017-08-22] MEDS: clonazePAM 1mg tablet PO PRN ×2 (08:37→17:24)
[2017-08-22 11:00] VITALS: BP 86/53
[2017-08-22 15:00] VITALS: BP 134/72
[2017-08-22] MEDS ORDERED: magnesium hydroxide 30ml (MOM) UD suspension PO ONE (17:15)
[2017-08-22 19:00] VITALS: BP 110/69
[2017-08-22] MEDS: mirtazapine 15mg tablet PO SCH (20:03)
[2017-08-22] MEDS ORDERED: warfarin 7.5mg tablet PO ONE (21:00)
[2017-08-22] MEDS: Insulin Detemir pen SQ SCH (21:38)
[2017-08-22 23:00] VITALS: BP 108/78
[2017-08-23 03:00] VITALS: BP 120/80
[2017-08-23] MEDS: ipratropium/albuterol 3ml nebule NEB SCH ×6 (03:17→23:54)
[2017-08-23 05:25] LABS: BASOPHILS # (AUTO) 0.1 X10'3 (0-0.2); BASOPHILS % (AUTO) 0.7 % (0-1); EOSINOPHILS # (AUTO) 0.6 X10'3 (0-0.9); HEMATOCRIT 31.6 % (35.0-45.0); HEMOGLOBIN 10.2 g/dl (12.0-16.0); LYMPHOCYTES # (AUTO) 1.5 X10'3 (1.1-4.8); LYMPHOCYTES % (AUTO) 13.5 % (21-51); MEAN CORPUSCULAR HEMOGLOBIN 26.9 PG (27.0-31.0); MEAN CORPUSCULAR HGB CONC 32.3 % (33.0-36.5); MEAN CORPUSCULAR VOLUME 83.4 FL (78-98); MONOCYTES # (AUTO) 0.9 X10'3 (0-0.9); MONOCYTES % (AUTO) 8.3 % (2-12); NEUTROPHILS # (AUTO) 8.2 X10'3 (1.8-7.7); NEUTROPHILS % (AUTO) 72.5 % (42-75); PLATELET COUNT 126 X10'3 (140-440); RED BLOOD COUNT 3.79 X10'6 (4.20-5.60); RED CELL DISTRIBUTION WIDTH 19.5 % (11.5-14.5); WHITE BLOOD COUNT 11.4 X10'3 (4.5-11.0)
[2017-08-23 05:30] LABS: INR 2.1 INR; PROTHROMBIN TIME 20.8 SECONDS (9.0-12.0)
[2017-08-23 05:35] LABS: ALBUMIN 3.1 G/DL (3.4-5.0); ANION GAP 7 (8-16); BLOOD UREA NITROGEN 112 MG/DL (7-18); CHLORIDE 92 MMOL/L (99-107); GLUCOSE 101 MG/DL (70-104); POTASSIUM 3.2 MMOL/L (3.5-5.1); SODIUM 143 MMOL/L (135-145); eGFR 15 ML/MIN
[2017-08-23 05:39] LABS: TOTAL CARBON DIOXIDE 43.8 MMOL/L (24-32)
[2017-08-23] MEDS: fluticasone/vilanterol 200mcg/25mcg inhaler IH SCH (06:45)
[2017-08-23 07:00] VITALS: BP 102/70
[2017-08-23] MEDS: sevelamer carbonate 800mg tablet PO SCH ×2 (07:19→17:59)
[2017-08-23] MEDS: aspirin 81mg tab.chew PO SCH (07:19)
[2017-08-23] MEDS: LACTOBACILLUS RHAMNOSUS GG 15 billion unit sprinkle caps PO SCH (07:19)
[2017-08-23] MEDS: amiodarone 200mg tablet PO SCH ×2 (07:19→19:13)
[2017-08-23] MEDS: prednisone 10mg tablet PO SCH (07:20)
[2017-08-23] MEDS: spironolactone 25 MG tablet PO SCH (07:20)
[2017-08-23] MEDS: pantoprazole 40mg Tablet.DR PO SCH (07:20)
[2017-08-23] MEDS: furosemide 40mg tablet PO SCH ×2 (07:20→19:14)
[2017-08-23] MEDS: digoxin 125mcg (0.125mg) tablet PO SCH (07:20)
[2017-08-23] MEDS: potassium Cl 20 mEq SR tablet PO PRN ×3 (07:20→21:23)
[2017-08-23] MEDS: docusate sod 100mg capsule PO SCH ×2 (07:20→19:25)
[2017-08-23] MEDS: FLUoxetine 10mg capsule PO SCH ×3 (07:20→21:22)
[2017-08-23] MEDS: gabapentin 300mg capsule PO SCH ×2 (07:20→13:02)
[2017-08-23] MEDS: clonazePAM 1mg tablet PO PRN ×2 (07:24→19:12)
[2017-08-23] MEDS: traMADol 50MG tablet PO PRN ×2 (07:25→19:13)
[2017-08-23 07:37] LABS: MAGNESIUM 2.5 MG/DL (1.5-2.4)
[2017-08-23] MEDS: K and/or MAG REPLACEMENT MC SCH (08:00)
[2017-08-23] MEDS: heparin, porcine 5000 units/ml vial SQ SCH ×2 (08:00→19:15)
[2017-08-23] MEDS: insulin Lispro (HumaLOG) vial - multi-dose SQ SCH ×3 (08:27→19:08)
[2017-08-23 11:00] VITALS: BP 109/77
[2017-08-23 15:00] VITALS: BP 102/77
[2017-08-23 19:00] VITALS: BP 108/63
[2017-08-23] MEDS ORDERED: warfarin 7.5mg tablet PO ONE (21:00)
[2017-08-23] MEDS: mirtazapine 15mg tablet PO SCH (21:22)
[2017-08-23] MEDS: bisacodyl 10mg suppository rectal RC PRN (21:23)
[2017-08-23] MEDS: Insulin Detemir pen SQ SCH (22:07)
[2017-08-23 23:00] VITALS: BP 107/71
[2017-08-24 03:00] VITALS: BP 108/63
[2017-08-24] MEDS: ipratropium/albuterol 3ml nebule NEB SCH ×6 (03:49→23:29)
[2017-08-24 06:00] VITALS: BP 109/70
[2017-08-24 06:21] LABS: PROTHROMBIN TIME 20.1 SECONDS (9.0-12.0)
[2017-08-24] MEDS: K and/or MAG REPLACEMENT MC SCH (08:00)
[2017-08-24 08:07] LABS: ANION GAP 6 (8-16); BLOOD UREA NITROGEN 116 MG/DL (7-18); BUN/CREATININE RATIO 36.3 (6.6-38.0); CALCIUM 9.2 MG/DL (8.5-10.1); CHLORIDE 94 MMOL/L (99-107); GLUCOSE 156 MG/DL (70-104); MAGNESIUM 2.3 MG/DL (1.5-2.4); POTASSIUM 4.3 MMOL/L (3.5-5.1); SODIUM 141 MMOL/L (135-145); eGFR 15 ML/MIN
[2017-08-24 08:11] LABS: TOTAL CARBON DIOXIDE 40.6 MMOL/L (24-32)
[2017-08-24] MEDS: fluticasone/vilanterol 200mcg/25mcg inhaler IH SCH (08:17)
[2017-08-24] MEDS: LACTOBACILLUS RHAMNOSUS GG 15 billion unit sprinkle caps PO SCH (08:25)
[2017-08-24] MEDS: traMADol 50MG tablet PO PRN (08:26)
[2017-08-24] MEDS: amiodarone 200mg tablet PO SCH ×2 (08:26→20:10)
[2017-08-24] MEDS: aspirin 81mg tab.chew PO SCH (08:27)
[2017-08-24] MEDS: clonazePAM 1mg tablet PO PRN (08:27)
[2017-08-24] MEDS: furosemide 40mg tablet PO SCH ×2 (08:28→20:11)
[2017-08-24] MEDS: sevelamer carbonate 800mg tablet PO SCH ×2 (08:28→20:11)
[2017-08-24] MEDS: prednisone 10mg tablet PO SCH (08:28)
[2017-08-24] MEDS: FLUoxetine 10mg capsule PO SCH ×3 (08:28→21:21)
[2017-08-24] MEDS: gabapentin 300mg capsule PO SCH ×2 (08:28→13:59)
[2017-08-24] MEDS: heparin, porcine 5000 units/ml vial SQ SCH ×2 (08:28→20:10)
[2017-08-24] MEDS: docusate sod 100mg capsule PO SCH ×2 (08:28→20:11)
[2017-08-24] MEDS: spironolactone 25 MG tablet PO SCH (08:28)
[2017-08-24] MEDS: pantoprazole 40mg Tablet.DR PO SCH (08:29)
[2017-08-24] MEDS: digoxin 125mcg (0.125mg) tablet PO SCH (08:29)
[2017-08-24] MEDS: insulin Lispro (HumaLOG) vial - multi-dose SQ SCH ×2 (09:35→14:04)
[2017-08-24] MEDS ORDERED: lactulose 20gm/30ml cup PO ONE (10:05)
[2017-08-24 11:00] VITALS: BP 95/53
[2017-08-24 15:00] VITALS: BP 122/69
[2017-08-24 18:30] VITALS: BP 110/80
[2017-08-24] MEDS ORDERED: warfarin 4mg tablet PO ONE (21:00)
[2017-08-24] MEDS: mirtazapine 15mg tablet PO SCH (21:22)
[2017-08-24] MEDS: Insulin Detemir pen SQ SCH (21:31)
[2017-08-24] MEDS ORDERED: LORazepam 0.5 MG tablet PO PRN (21:35)
[2017-08-25 02:00] VITALS: BP 99/66
[2017-08-25] MEDS: ipratropium/albuterol 3ml nebule NEB SCH ×6 (02:47→23:17)
[2017-08-25 06:00] VITALS: BP 108/80
[2017-08-25] MEDS: sevelamer carbonate 800mg tablet PO SCH ×2 (07:30→17:20)
[2017-08-25] MEDS: K and/or MAG REPLACEMENT MC SCH (08:00)
[2017-08-25] MEDS: fluticasone/vilanterol 200mcg/25mcg inhaler IH SCH (08:49)
[2017-08-25 08:50] LABS: INR 2.3 INR; PROTHROMBIN TIME 22.7 SECONDS (9.0-12.0)
[2017-08-25 08:57] LABS: ALBUMIN 3.2 G/DL (3.4-5.0); ANION GAP 6 (8-16); BLOOD UREA NITROGEN 111 MG/DL (7-18); BUN/CREATININE RATIO 33.6 (6.6-38.0); CALCIUM 9.6 MG/DL (8.5-10.1); CHLORIDE 94 MMOL/L (99-107); GLUCOSE 154 MG/DL (70-104); POTASSIUM 3.9 MMOL/L (3.5-5.1); SODIUM 141 MMOL/L (135-145); eGFR 14 ML/MIN
[2017-08-25] MEDS: LACTOBACILLUS RHAMNOSUS GG 15 billion unit sprinkle caps PO SCH (09:26)
[2017-08-25] MEDS: traMADol 50MG tablet PO PRN ×2 (09:27→21:04)
[2017-08-25] MEDS: pantoprazole 40mg Tablet.DR PO SCH (09:28)
[2017-08-25] MEDS: spironolactone 25 MG tablet PO SCH (09:28)
[2017-08-25] MEDS: furosemide 40mg tablet PO SCH ×2 (09:28→21:03)
[2017-08-25] MEDS: clonazePAM 1mg tablet PO PRN ×2 (09:28→21:03)
[2017-08-25] MEDS: gabapentin 300mg capsule PO SCH ×2 (09:28→13:31)
[2017-08-25] MEDS: docusate sod 100mg capsule PO SCH ×2 (09:29→21:02)
[2017-08-25] MEDS: amiodarone 200mg tablet PO SCH ×2 (09:29→21:01)
[2017-08-25] MEDS: aspirin 81mg tab.chew PO SCH (09:29)
[2017-08-25] MEDS: FLUoxetine 10mg capsule PO SCH ×3 (09:29→21:02)
[2017-08-25] MEDS: prednisone 10mg tablet PO SCH (09:29)
[2017-08-25] MEDS: digoxin 125mcg (0.125mg) tablet PO SCH (09:31)
[2017-08-25] MEDS: heparin, porcine 5000 units/ml vial SQ SCH ×2 (09:32→21:04)
[2017-08-25] MEDS: insulin Lispro (HumaLOG) vial - multi-dose SQ SCH ×2 (09:41→13:29)
[2017-08-25 11:00] VITALS: BP 108/80
[2017-08-25 15:00] VITALS: BP 109/79
[2017-08-25 19:00] VITALS: BP 99/63
[2017-08-25] MEDS ORDERED: warfarin 7.5mg tablet PO ONE (21:00)
[2017-08-25] MEDS: mirtazapine 15mg tablet PO SCH (21:02)
[2017-08-25] MEDS: Insulin Detemir pen SQ SCH (21:23)
[2017-08-25 23:00] VITALS: BP 121/72
[2017-08-26 03:00] VITALS: BP 110/72
[2017-08-26] MEDS: ipratropium/albuterol 3ml nebule NEB SCH ×6 (03:27→23:48)
[2017-08-26 06:00] VITALS: BP 103/61
[2017-08-26 06:52] LABS: BASOPHILS # (AUTO) 0.1 X10'3 (0-0.2); BASOPHILS % (AUTO) 0.8 % (0-1); EOSINOPHILS # (AUTO) 0.3 X10'3 (0-0.9); EOSINOPHILS % (AUTO) 3.8 % (0-6); HEMATOCRIT 30.6 % (35.0-45.0); HEMOGLOBIN 10.3 g/dl (12.0-16.0); LYMPHOCYTES # (AUTO) 1.6 X10'3 (1.1-4.8); LYMPHOCYTES % (AUTO) 22.2 % (21-51); MEAN CORPUSCULAR HEMOGLOBIN 27.7 PG (27.0-31.0); MEAN CORPUSCULAR HGB CONC 33.5 % (33.0-36.5); MEAN CORPUSCULAR VOLUME 82.5 FL (78-98); MEAN PLATELET VOLUME 7.5 FL (7.4-10.4); MONOCYTES # (AUTO) 0.5 X10'3 (0-0.9); MONOCYTES % (AUTO) 6.6 % (2-12); NEUTROPHILS # (AUTO) 4.8 X10'3 (1.8-7.7); NEUTROPHILS % (AUTO) 66.6 % (42-75); PLATELET COUNT 130 X10'3 (140-440); RED BLOOD COUNT 3.71 X10'6 (4.20-5.60); RED CELL DISTRIBUTION WIDTH 19.3 % (11.5-14.5); WHITE BLOOD COUNT 7.2 X10'3 (4.5-11.0)
[2017-08-26 07:02] LABS: INR 2.7 INR; PROTHROMBIN TIME 26.7 SECONDS (9.0-12.0)
[2017-08-26] MEDS: fluticasone/vilanterol 200mcg/25mcg inhaler IH SCH (07:19)
[2017-08-26 07:22] LABS: ALBUMIN 3.1 G/DL (3.4-5.0); ANION GAP 8 (8-16); BLOOD UREA NITROGEN 110 MG/DL (7-18); BUN/CREATININE RATIO 32.4 (6.6-38.0); CALCIUM 9.3 MG/DL (8.5-10.1); CHLORIDE 95 MMOL/L (99-107); GLUCOSE 136 MG/DL (70-104); POTASSIUM 3.5 MMOL/L (3.5-5.1); SODIUM 141 MMOL/L (135-145); TOTAL CARBON DIOXIDE 38.3 MMOL/L (24-32); eGFR 14 ML/MIN
[2017-08-26] MEDS: spironolactone 25 MG tablet PO SCH (08:00)
[2017-08-26] MEDS: K and/or MAG REPLACEMENT MC SCH (08:00)
[2017-08-26] MEDS: furosemide 40mg tablet PO SCH ×2 (08:00→19:41)
[2017-08-26] MEDS: amiodarone 200mg tablet PO SCH ×2 (08:23→19:45)
[2017-08-26] MEDS: digoxin 125mcg (0.125mg) tablet PO SCH (08:24)
[2017-08-26] MEDS: LACTOBACILLUS RHAMNOSUS GG 15 billion unit sprinkle caps PO SCH (08:24)
[2017-08-26] MEDS: aspirin 81mg tab.chew PO SCH (08:24)
[2017-08-26] MEDS: prednisone 10mg tablet PO SCH (08:24)
[2017-08-26] MEDS: FLUoxetine 10mg capsule PO SCH ×3 (08:24→19:41)
[2017-08-26] MEDS: pantoprazole 40mg Tablet.DR PO SCH (08:24)
[2017-08-26] MEDS: docusate sod 100mg capsule PO SCH ×2 (08:24→19:40)
[2017-08-26] MEDS: gabapentin 300mg capsule PO SCH ×2 (08:24→13:45)
[2017-08-26] MEDS: sevelamer carbonate 800mg tablet PO SCH ×2 (08:25→17:55)
[2017-08-26] MEDS: heparin, porcine 5000 units/ml vial SQ SCH ×2 (08:26→19:45)
[2017-08-26] MEDS: insulin Lispro (HumaLOG) vial - multi-dose SQ SCH ×3 (08:33→19:34)
[2017-08-26] MEDS: traMADol 50MG tablet PO PRN ×2 (08:38→19:43)
[2017-08-26] MEDS: clonazePAM 1mg tablet PO PRN ×2 (08:38→19:41)
[2017-08-26 11:00] VITALS: BP 100/69
[2017-08-26 15:00] VITALS: BP 158/67
[2017-08-26 19:00] VITALS: BP 110/78
[2017-08-26] MEDS: mirtazapine 15mg tablet PO SCH (19:44)
[2017-08-26] MEDS: Insulin Detemir pen SQ SCH (21:00)
[2017-08-26] MEDS ORDERED: warfarin 3mg tablet PO ONE (21:00)
[2017-08-26 22:30] VITALS: BP 125/81
[2017-08-27 02:30] VITALS: BP 118/80
[2017-08-27] MEDS: ipratropium/albuterol 3ml nebule NEB SCH ×6 (02:38→23:25)
[2017-08-27 06:00] VITALS: BP 123/82
[2017-08-27] MEDS: fluticasone/vilanterol 200mcg/25mcg inhaler IH SCH (06:59)
[2017-08-27 07:02] LABS: INR 2.6 INR; PROTHROMBIN TIME 25.6 SECONDS (9.0-12.0)
[2017-08-27 07:08] LABS: ALBUMIN 3.1 G/DL (3.4-5.0); ANION GAP 8 (8-16); BLOOD UREA NITROGEN 106 MG/DL (7-18); BUN/CREATININE RATIO 33.1 (6.6-38.0); CALCIUM 9.1 MG/DL (8.5-10.1); CHLORIDE 95 MMOL/L (99-107); GLUCOSE 116 MG/DL (70-104); POTASSIUM 3.5 MMOL/L (3.5-5.1); SODIUM 140 MMOL/L (135-145); TOTAL CARBON DIOXIDE 37.4 MMOL/L (24-32); eGFR 15 ML/MIN
[2017-08-27] MEDS: sevelamer carbonate 800mg tablet PO SCH ×2 (07:30→18:04)
[2017-08-27] MEDS: K and/or MAG REPLACEMENT MC SCH (08:00)
[2017-08-27] MEDS: LACTOBACILLUS RHAMNOSUS GG 15 billion unit sprinkle caps PO SCH (09:41)
[2017-08-27] MEDS: spironolactone 25 MG tablet PO SCH (09:41)
[2017-08-27] MEDS: furosemide 40mg tablet PO SCH ×2 (09:42→21:11)
[2017-08-27] MEDS: aspirin 81mg tab.chew PO SCH (09:43)
[2017-08-27] MEDS: pantoprazole 40mg Tablet.DR PO SCH (09:43)
[2017-08-27] MEDS: amiodarone 200mg tablet PO SCH ×2 (09:44→21:10)
[2017-08-27] MEDS: docusate sod 100mg capsule PO SCH ×2 (09:44→21:10)
[2017-08-27] MEDS: prednisone 10mg tablet PO SCH (09:45)
[2017-08-27] MEDS: FLUoxetine 10mg capsule PO SCH ×3 (09:45→21:11)
[2017-08-27] MEDS: gabapentin 300mg capsule PO SCH ×2 (09:45→13:26)
[2017-08-27] MEDS: heparin, porcine 5000 units/ml vial SQ SCH (09:49)
[2017-08-27] MEDS: digoxin 125mcg (0.125mg) tablet PO SCH (09:59)
[2017-08-27] MEDS: insulin Lispro (HumaLOG) vial - multi-dose SQ SCH ×3 (10:06→18:56)
[2017-08-27] MEDS: clonazePAM 1mg tablet PO PRN ×2 (10:13→21:24)
[2017-08-27] MEDS: traMADol 50MG tablet PO PRN ×2 (10:15→21:24)
[2017-08-27 11:00] VITALS: BP 113/67
[2017-08-27 15:00] VITALS: BP 104/70
[2017-08-27 19:00] VITALS: BP 124/84
[2017-08-27] MEDS ORDERED: warfarin 4mg tablet PO ONE (21:00)
[2017-08-27] MEDS: mirtazapine 15mg tablet PO SCH (21:11)
[2017-08-27] MEDS: Insulin Detemir pen SQ SCH (21:21)
[2017-08-27 23:00] VITALS: BP 106/69
[2017-08-28 03:00] VITALS: BP 99/67
[2017-08-28] MEDS: ipratropium/albuterol 3ml nebule NEB SCH ×6 (03:22→23:27)
[2017-08-28 07:00] VITALS: BP 105/78
[2017-08-28 07:38] LABS: INR 2.3 INR; PROTHROMBIN TIME 23.2 SECONDS (9.0-12.0)
[2017-08-28 07:50] LABS: ALBUMIN 3.3 G/DL (3.4-5.0); ANION GAP 7 (8-16); BLOOD UREA NITROGEN 103 MG/DL (7-18); BUN/CREATININE RATIO 31.2 (6.6-38.0); CALCIUM 9.2 MG/DL (8.5-10.1); CHLORIDE 96 MMOL/L (99-107); GLUCOSE 102 MG/DL (70-104); POTASSIUM 3.5 MMOL/L (3.5-5.1); SODIUM 142 MMOL/L (135-145); TOTAL CARBON DIOXIDE 38.8 MMOL/L (24-32); eGFR 14 ML/MIN
[2017-08-28] MEDS: docusate sod 100mg capsule PO SCH ×2 (08:00→20:25)
[2017-08-28] MEDS: K and/or MAG REPLACEMENT MC SCH (08:00)
[2017-08-28] MEDS: fluticasone/vilanterol 200mcg/25mcg inhaler IH SCH (08:03)
[2017-08-28] MEDS: pantoprazole 40mg Tablet.DR PO SCH (08:44)
[2017-08-28] MEDS: spironolactone 25 MG tablet PO SCH (08:45)
[2017-08-28] MEDS: prednisone 10mg tablet PO SCH (08:46)
[2017-08-28] MEDS: gabapentin 300mg capsule PO SCH ×2 (08:46→14:07)
[2017-08-28] MEDS: aspirin 81mg tab.chew PO SCH (08:46)
[2017-08-28] MEDS: amiodarone 200mg tablet PO SCH ×2 (08:47→20:25)
[2017-08-28] MEDS: FLUoxetine 10mg capsule PO SCH ×3 (08:47→20:25)
[2017-08-28] MEDS: clonazePAM 1mg tablet PO PRN (08:48)
[2017-08-28] MEDS: LACTOBACILLUS RHAMNOSUS GG 15 billion unit sprinkle caps PO SCH (08:48)
[2017-08-28] MEDS: digoxin 125mcg (0.125mg) tablet PO SCH (08:48)
[2017-08-28] MEDS: traMADol 50MG tablet PO PRN (08:50)
[2017-08-28] MEDS: sevelamer carbonate 800mg tablet PO SCH ×2 (08:51→17:48)
[2017-08-28] MEDS ORDERED: lactulose 20gm/30ml cup PO ONE (09:40)
[2017-08-28] MEDS: insulin Lispro (HumaLOG) vial - multi-dose SQ SCH ×3 (10:01→18:53)
[2017-08-28 11:00] VITALS: BP 104/71
[2017-08-28 18:00] VITALS: BP 95/61
[2017-08-28] MEDS: mirtazapine 15mg tablet PO SCH (20:24)
[2017-08-28] MEDS: Insulin Detemir pen SQ SCH (20:29)
[2017-08-28] MEDS ORDERED: warfarin 5mg tablet PO ONE (21:00)
[2017-08-28] MEDS: bisacodyl 10mg suppository rectal RC PRN (21:56)
[2017-08-28 22:00] VITALS: BP 119/77
[2017-08-29] MEDS: traMADol 50MG tablet PO PRN ×3 (01:57→20:13)
[2017-08-29 02:00] VITALS: BP 103/71
[2017-08-29] MEDS: ipratropium/albuterol 3ml nebule NEB SCH ×6 (02:39→23:11)
[2017-08-29 05:52] LABS: INR 2.1 INR; PROTHROMBIN TIME 20.9 SECONDS (9.0-12.0)
[2017-08-29 06:00] LABS: BASOPHILS # (AUTO) 0.1 X10'3 (0-0.2); BASOPHILS % (AUTO) 0.5 % (0-1); EOSINOPHILS # (AUTO) 0.4 X10'3 (0-0.9); HEMOGLOBIN 11.1 g/dl (12.0-16.0); LYMPHOCYTES # (AUTO) 2.1 X10'3 (1.1-4.8); MEAN CORPUSCULAR HEMOGLOBIN 27.8 PG (27.0-31.0); MEAN CORPUSCULAR HGB CONC 32.7 % (33.0-36.5); MEAN CORPUSCULAR VOLUME 85.2 FL (78-98); MEAN PLATELET VOLUME 8.2 FL (7.4-10.4); MONOCYTES # (AUTO) 0.3 X10'3 (0-0.9); MONOCYTES % (AUTO) 3.2 % (2-12); NEUTROPHILS # (AUTO) 7.6 X10'3 (1.8-7.7); NEUTROPHILS % (AUTO) 72.3 % (42-75); PLATELET COUNT 151 X10'3 (140-440); RED BLOOD COUNT 3.99 X10'6 (4.20-5.60); WHITE BLOOD COUNT 10.5 X10'3 (4.5-11.0)
[2017-08-29 07:00] VITALS: BP 122/82
[2017-08-29 07:30] LABS: ANISOCYTOSIS 2+; EOSINOPHILS % (MANUAL) 1 % (0-6); LYMPHOCYTES % (MANUAL) 19 % (21-51); MONOCYTES % (MANUAL) 5 % (2-12); NEUTROPHILS % (MANUAL) 75 % (42-75); NUCLEATED RED BLOOD CELLS 1 /100WBC (0-0); PLATELET ESTIMATE NORMAL; TOTAL CELLS COUNTED 100
[2017-08-29] MEDS: sevelamer carbonate 800mg tablet PO SCH ×2 (07:30→17:41)
[2017-08-29 07:31] LABS: POLYCHROMASIA FEW
[2017-08-29 07:58] LABS: ALBUMIN 3.5 G/DL (3.4-5.0); ANION GAP 8 (8-16); BLOOD UREA NITROGEN 100 MG/DL (7-18); BUN/CREATININE RATIO 28.6 (6.6-38.0); CALCIUM 9.4 MG/DL (8.5-10.1); CHLORIDE 95 MMOL/L (99-107); GLUCOSE 130 MG/DL (70-104); POTASSIUM 3.7 MMOL/L (3.5-5.1); SODIUM 139 MMOL/L (135-145); TOTAL CARBON DIOXIDE 35.9 MMOL/L (24-32); eGFR 13 ML/MIN
[2017-08-29] MEDS: K and/or MAG REPLACEMENT MC SCH (08:00)
[2017-08-29] MEDS: docusate sod 100mg capsule PO SCH ×2 (08:00→20:00)
[2017-08-29] MEDS ORDERED: furosemide 20MG tablet PO SCH (08:00)
[2017-08-29] MEDS: fluticasone/vilanterol 200mcg/25mcg inhaler IH SCH (08:10)
[2017-08-29] MEDS: prednisone 10mg tablet PO SCH (08:38)
[2017-08-29] MEDS: gabapentin 300mg capsule PO SCH ×2 (08:38→13:41)
[2017-08-29] MEDS: FLUoxetine 10mg capsule PO SCH ×3 (08:38→20:11)
[2017-08-29] MEDS: spironolactone 25 MG tablet PO SCH (08:38)
[2017-08-29] MEDS: aspirin 81mg tab.chew PO SCH (08:38)
[2017-08-29] MEDS: LACTOBACILLUS RHAMNOSUS GG 15 billion unit sprinkle caps PO SCH (08:38)
[2017-08-29] MEDS: amiodarone 200mg tablet PO SCH ×2 (08:39→20:13)
[2017-08-29] MEDS: pantoprazole 40mg Tablet.DR PO SCH (08:39)
[2017-08-29] MEDS: digoxin 125mcg (0.125mg) tablet PO SCH (08:44)
[2017-08-29] MEDS: clonazePAM 1mg tablet PO PRN ×2 (08:48→20:14)
[2017-08-29] MEDS: insulin Lispro (HumaLOG) vial - multi-dose SQ SCH ×3 (09:05→18:59)
[2017-08-29 11:00] VITALS: BP 121/87
[2017-08-29 15:00] VITALS: BP 115/55
[2017-08-29 19:00] VITALS: BP 117/73
[2017-08-29] MEDS: mirtazapine 15mg tablet PO SCH (20:10)
[2017-08-29] MEDS ORDERED: warfarin 3mg tablet PO ONE (21:00)
[2017-08-29] MEDS: Insulin Detemir pen SQ SCH (21:38)
[2017-08-29 23:00] VITALS: BP 111/80
[2017-08-30 03:00] VITALS: BP 114/74
[2017-08-30] MEDS: ipratropium/albuterol 3ml nebule NEB SCH ×4 (03:03→15:04)
[2017-08-30 05:39] LABS: INR 2.3 INR; PROTHROMBIN TIME 23.6 SECONDS (9.0-12.0)
[2017-08-30 06:00] VITALS: BP 103/72
[2017-08-30] MEDS: gabapentin 300mg capsule PO SCH ×2 (07:17→13:26)
[2017-08-30] MEDS: LACTOBACILLUS RHAMNOSUS GG 15 billion unit sprinkle caps PO SCH (07:17)
[2017-08-30] MEDS: pantoprazole 40mg Tablet.DR PO SCH (07:17)
[2017-08-30] MEDS: FLUoxetine 10mg capsule PO SCH ×2 (07:17→13:26)
[2017-08-30] MEDS: prednisone 10mg tablet PO SCH (07:17)
[2017-08-30] MEDS: aspirin 81mg tab.chew PO SCH (07:18)
[2017-08-30] MEDS: amiodarone 200mg tablet PO SCH (07:19)
[2017-08-30] MEDS: digoxin 125mcg (0.125mg) tablet PO SCH (07:19)
[2017-08-30] MEDS: spironolactone 25 MG tablet PO SCH (07:19)
[2017-08-30] MEDS: sevelamer carbonate 800mg tablet PO SCH (07:20)
[2017-08-30] MEDS: docusate sod 100mg capsule PO SCH (07:21)
[2017-08-30] MEDS: clonazePAM 1mg tablet PO PRN (07:25)
[2017-08-30] MEDS: traMADol 50MG tablet PO PRN (07:26)
[2017-08-30 07:29] VITALS: BP 114/78
[2017-08-30] MEDS: fluticasone/vilanterol 200mcg/25mcg inhaler IH SCH (07:39)
[2017-08-30] MEDS: K and/or MAG REPLACEMENT MC SCH (08:00)
[2017-08-30 08:17] LABS: ALBUMIN 3.1 G/DL (3.4-5.0); ANION GAP 5 (8-16); BLOOD UREA NITROGEN 91 MG/DL (7-18); BUN/CREATININE RATIO 28.4 (6.6-38.0); CALCIUM 9.1 MG/DL (8.5-10.1); CHLORIDE 100 MMOL/L (99-107); GLUCOSE 91 MG/DL (70-104); MAGNESIUM 2.4 MG/DL (1.5-2.4); POTASSIUM 3.8 MMOL/L (3.5-5.1); SODIUM 142 MMOL/L (135-145); TOTAL CARBON DIOXIDE 36.7 MMOL/L (24-32); eGFR 15 ML/MIN
[2017-08-30] MEDS: insulin Lispro (HumaLOG) vial - multi-dose SQ SCH ×2 (10:03→13:31)
[2017-08-30 11:00] VITALS: BP 122/72
[2017-08-30] MEDS ORDERED: DIGO125T5 PO (12:41)
[2017-08-30] MEDS ORDERED: Non-Formulary PO (12:41)
[2017-08-30] MEDS ORDERED: INSU100I25 SQ (12:41)
[2017-08-30] MEDS ORDERED: FURO-150 PO (12:41)
[2017-08-30] MEDS ORDERED: SPIR25TA3 PO (12:41)
[2017-08-30] MEDS ORDERED: PRED10TA PO (12:41)
[2017-08-30] MEDS ORDERED: AMIO200T57 PO (12:41)
[2017-08-30] MEDS ORDERED: SEVE800T8 PO (12:41)
[2017-08-30] MEDS ORDERED: INSU100C10 SQ (12:51)
[2017-08-30] MEDS ORDERED: warfarin 5mg tablet PO ONE (21:00)
== END 2017-08-30 15:48 | disposition home health service (06) | DRG 682 ==
LOC: ER 10:25 → ED HOLD 13:01 → EDBEDREQ 14:12 → PCU 3S 16:07 → ICU 2S 08-13 11:08 → PCU 3S 08-21 11:23
PROVIDERS: ADMIT Internal Medicine; ATTEND Internal Medicine
PROC: 5A09557 Assistance with Respiratory Ventilation, Greater than 96 Consecutive Hours, Continuous Positive Airway Pressure (ICD-10-PCS; principal; 2017-08-10)
PROC: 02HV33Z Insertion of Infusion Device into Superior Vena Cava, Percutaneous Approach (ICD-10-PCS; 2017-08-13)
PROC: B5181ZA Fluoroscopy of Superior Vena Cava using Low Osmolar Contrast, Guidance (ICD-10-PCS; 2017-08-13)
PROC: 02HQ32Z Insertion of Monitoring Device into Right Pulmonary Artery, Percutaneous Approach (ICD-10-PCS; 2017-08-13)
DX: N17.9 Acute kidney failure, unspecified (principal); I50.33 Acute on chronic diastolic (congestive) heart failure; R65.11 Systemic inflammatory response syndrome (SIRS) of non-infectious origin with acute organ dysfunction; J96.21 Acute and chronic respiratory failure with hypoxia; I48.91 Unspecified atrial fibrillation; E11.22 Type 2 diabetes mellitus with diabetic chronic kidney disease; I48.92 Unspecified atrial flutter; E66.01 Morbid (severe) obesity due to excess calories; J44.0 Chronic obstructive pulmonary disease with (acute) lower respiratory infection; J44.1 Chronic obstructive pulmonary disease with (acute) exacerbation; I31.3 Pericardial effusion (noninflammatory); I42.0 Dilated cardiomyopathy; Z68.41 Body mass index [BMI] 40.0-44.9, adult; N18.3 Chronic kidney disease, stage 3 (moderate); E87.5 Hyperkalemia; I07.1 Rheumatic tricuspid insufficiency; J20.9 Acute bronchitis, unspecified; F32.9 Major depressive disorder, single episode, unspecified; F41.9 Anxiety disorder, unspecified; G47.33 Obstructive sleep apnea (adult) (pediatric); G89.4 Chronic pain syndrome; K59.00 Constipation, unspecified; F17.210 Nicotine dependence, cigarettes, uncomplicated; Z99.81 Dependence on supplemental oxygen; Z79.51 Long term (current) use of inhaled steroids; Z79.82 Long term (current) use of aspirin; Z79.01 Long term (current) use of anticoagulants; Z79.899 Other long term (current) drug therapy; Z88.8 Allergy status to other drugs, medicaments and biological substances; Z85.3 Personal history of malignant neoplasm of breast; Z86.711 Personal history of pulmonary embolism; Z71.6 Tobacco abuse counseling
CPT/HCPCS: 36415; 36600; 51702; 70450; 71045; 71048; 71250; 73560; 73700; 80048; 80053; 80061; 80069; 80076; 80162; 81003; 82570; 82803; 82810; 82948; 83036; 83605; 83735; 83880; 84100; 84132; 84156; 84300; 84439; 84443; 84484; 84560; 85018; 85025; 85610; 87040; 87070; 93005; 93306; 94640; 94660; 94667; 94668; 94760; 97110; 97116; 97161; 97530; 99291; A4315; A6212; A6213; A6250; A6449; C1894; J0282; J0696; J1120; J1250; J1644; J1940; J2920; J2930; J3490; J7030; J7512

== ENCOUNTER 2017-09-07 16:06 | Inpatient (IN) | payer MEDICARE, MEDICAID ==
[~2017-09-07] VITALS: Ht 172.7 cm; Wt 135.4 kg
[~2017-09-07 16:06] MED LIST changes: +AMIO200T57 PO; -BACL20TA PO; +DIGO125T5 PO; +FURO-150 PO; -FURO80TA87 PO; -HYDR12.5 PO; +INSU100C10 SQ; +INSU100I25 SQ; -METF500T4 PO; +Non-Formulary PO; +PRED10TA PO; -PRED20TA PO; +SEVE800T8 PO; +SPIR25TA3 PO
[2017-09-07 16:30] LABS: BASOPHILS % (AUTO) 0.3 % (0-1); EOSINOPHILS # (AUTO) 0.1 X10'3 (0-0.9); EOSINOPHILS % (AUTO) 1.3 % (0-6); HEMATOCRIT 33.9 % (35.0-45.0); HEMOGLOBIN 10.8 g/dl (12.0-16.0); LYMPHOCYTES # (AUTO) 2.2 X10'3 (1.1-4.8); LYMPHOCYTES % (AUTO) 33.4 % (21-51); MEAN CORPUSCULAR HEMOGLOBIN 28.1 PG (27.0-31.0); MEAN CORPUSCULAR HGB CONC 31.9 % (33.0-36.5); MEAN CORPUSCULAR VOLUME 88.1 FL (78-98); MEAN PLATELET VOLUME 7.4 FL (7.4-10.4); MONOCYTES # (AUTO) 0.4 X10'3 (0-0.9); NEUTROPHILS # (AUTO) 3.8 X10'3 (1.8-7.7); PLATELET COUNT 176 X10'3 (140-440); RED BLOOD COUNT 3.85 X10'6 (4.20-5.60); RED CELL DISTRIBUTION WIDTH 24.3 % (11.5-14.5); WHITE BLOOD COUNT 6.4 X10'3 (4.5-11.0)
[2017-09-07 16:52] LABS: ALANINE AMINOTRANSFERASE 42 U/L (12-78); ALBUMIN 3.3 G/DL (3.4-5.0); ALBUMIN/GLOBULIN RATIO 0.8 (1.1-1.5); ALKALINE PHOSPHATASE 164 IU/L (46-116); ANION GAP 7 (8-16); ASPARTATE AMINO TRANSFERASE 19 U/L (10-37); BILIRUBIN,TOTAL 0.9 MG/DL (0.1-1.0); BLOOD UREA NITROGEN 62 MG/DL (7-18); BUN/CREATININE RATIO 20.7 (6.6-38.0); CALCIUM 8.7 MG/DL (8.5-10.1); CHLORIDE 103 MMOL/L (99-107); CREATININE 2.99 MG/DL (0.40-0.90); GLUCOSE 197 MG/DL (70-104); MAGNESIUM 2.6 MG/DL (1.5-2.4); SODIUM 141 MMOL/L (135-145); TOTAL CARBON DIOXIDE 30.7 MMOL/L (24-32); TOTAL PROTEIN 7.2 G/DL (6.4-8.2); eGFR 16 ML/MIN
[2017-09-07 16:56] LABS: POTASSIUM 7.1 MMOL/L (3.5-5.1)
[2017-09-07] MEDS ORDERED: calcium chloride 100 MG/1 ML inj IV ONE (17:10)
[2017-09-07] MEDS ORDERED: sodium bicarbonate (8.4%) 1 mEq/ml syringe IV ONE (17:10)
[2017-09-07] MEDS ORDERED: sodium polystyrene sulfonate 15gm/60ml oral suspension PO ONE ×2 (17:10→21:40)
[2017-09-07] MEDS ORDERED: albuterol 2.5 MG/3 ML nebule NEB ONE (17:10)
[2017-09-07] MEDS ORDERED: dextrose 50%-water 50ml dispensing syringe IV ONE (17:25)
[2017-09-07] MEDS ORDERED: insulin regular, human 10 units/0.1 ml syringe IV ONE (17:25)
[2017-09-07 19:56] LABS: ALBUMIN 3.3 G/DL (3.4-5.0); ANION GAP 4 (8-16); BLOOD UREA NITROGEN 61 MG/DL (7-18); BUN/CREATININE RATIO 20.3 (6.6-38.0); CALCIUM 9.9 MG/DL (8.5-10.1); CHLORIDE 106 MMOL/L (99-107); GLUCOSE 126 MG/DL (70-104); POTASSIUM 5.9 MMOL/L (3.5-5.1); SODIUM 148 MMOL/L (135-145); eGFR 16 ML/MIN
[2017-09-07] MEDS ORDERED: potassium Cl 40MEQ/NS 500ml 500 ML IV PRN ×2 (21:40)
[2017-09-07] MEDS ORDERED: furosemide 40mg/4ml inj IV ONE (21:40)
[2017-09-07] MEDS ORDERED: potassium Cl 20 mEq SR tablet PO PRN ×2 (21:40)
[2017-09-07] MEDS ORDERED: magnesium hydroxide 30ml (MOM) UD suspension PO PRN (21:40)
[2017-09-07] MEDS ORDERED: mag hydrox/Alum hydrox/simeth 30ml oral suspension PO PRN (21:40)
[2017-09-07] MEDS ORDERED: morphine 2 MG/ML inj. syringe IV PRN (21:40)
[2017-09-07] MEDS ORDERED: acetaminophen 325mg tablet PO PRN (21:40)
[2017-09-07] MEDS ORDERED: magnesium Cl slow-release 64mg tablet PO PRN (21:40)
[2017-09-07] MEDS ORDERED: morphine 5 MG/ML injection IV PRN (21:40)
[2017-09-07] MEDS ORDERED: ondansetron/PF 4mg/2ml inj IV PRN (21:40)
[2017-09-07] MEDS ORDERED: albuterol 2.5 MG/3 ML nebule NEB PRN (21:40)
[2017-09-07] MEDS ORDERED: ipratropium/albuterol 3ml nebule NEB PRN (21:40)
[2017-09-07] MEDS ORDERED: magnesium 2GM in 50ml NS 50 ML IV PRN (21:40)
[2017-09-07] MEDS ORDERED: magnesium 4gm in 100ml NS 100 ML IV PRN (21:40)
[2017-09-07 22:12] LABS: INR 3.1 INR; PROTHROMBIN TIME 31.1 SECONDS (9.0-12.0)
[2017-09-07] MEDS ORDERED: clonazePAM 1mg tablet PO ONE (23:50)
[2017-09-08] VITALS (7 sets, daily range): BP systolic 131–159; BP diastolic 56–83
[2017-09-08] MEDS: normal saline 1000ml 1,000 ML IV SCH ×2 (00:31→10:56)
[2017-09-08] MEDS: traMADol 50MG tablet PO PRN (00:31)
[2017-09-08 05:50] LABS: BASOPHILS % (AUTO) 0.3 % (0-1); EOSINOPHILS # (AUTO) 0.2 X10'3 (0-0.9); EOSINOPHILS % (AUTO) 3.2 % (0-6); HEMATOCRIT 31.2 % (35.0-45.0); HEMOGLOBIN 10.2 g/dl (12.0-16.0); LYMPHOCYTES # (AUTO) 2.4 X10'3 (1.1-4.8); LYMPHOCYTES % (AUTO) 37.4 % (21-51); MEAN CORPUSCULAR HEMOGLOBIN 28.5 PG (27.0-31.0); MEAN CORPUSCULAR HGB CONC 32.6 % (33.0-36.5); MEAN CORPUSCULAR VOLUME 87.4 FL (78-98); MEAN PLATELET VOLUME 7.4 FL (7.4-10.4); MONOCYTES # (AUTO) 0.5 X10'3 (0-0.9); MONOCYTES % (AUTO) 7.9 % (2-12); NEUTROPHILS # (AUTO) 3.3 X10'3 (1.8-7.7); NEUTROPHILS % (AUTO) 51.2 % (42-75); PLATELET COUNT 145 X10'3 (140-440); RED BLOOD COUNT 3.57 X10'6 (4.20-5.60); RED CELL DISTRIBUTION WIDTH 24.4 % (11.5-14.5); WHITE BLOOD COUNT 6.4 X10'3 (4.5-11.0)
[2017-09-08 06:02] LABS: PROTHROMBIN TIME 29.4 SECONDS (9.0-12.0)
[2017-09-08 06:09] LABS: ALANINE AMINOTRANSFERASE 36 U/L (12-78); ALBUMIN 2.8 G/DL (3.4-5.0); ALBUMIN/GLOBULIN RATIO 0.8 (1.1-1.5); ALKALINE PHOSPHATASE 138 IU/L (46-116); ANION GAP 5 (8-16); ASPARTATE AMINO TRANSFERASE 18 U/L (10-37); BILIRUBIN,TOTAL 0.8 MG/DL (0.1-1.0); BLOOD UREA NITROGEN 56 MG/DL (7-18); BUN/CREATININE RATIO 20.2 (6.6-38.0); CALCIUM 8.7 MG/DL (8.5-10.1); CHLORIDE 107 MMOL/L (99-107); CHOL/HDL RATIO 2.7 (0.00-4.99); CHOLESTEROL 131 MG/DL (0-200); CREATININE 2.77 MG/DL (0.40-0.90); GLUCOSE 118 MG/DL (70-104); HDL CHOLESTEROL 48 MG/DL (35-60); LDL CHOLESTEROL 50 MG/DL (50-100); MAGNESIUM 2.6 MG/DL (1.5-2.4); POTASSIUM 4.8 MMOL/L (3.5-5.1); SODIUM 148 MMOL/L (135-145); TOTAL CARBON DIOXIDE 35.9 MMOL/L (24-32); TOTAL PROTEIN 6.4 G/DL (6.4-8.2); TRIGLYCERIDES 321 MG/DL (20-135); eGFR 18 ML/MIN
[2017-09-08] MEDS: sevelamer carbonate 800mg tablet PO SCH ×2 (07:30→17:30)
[2017-09-08] MEDS: insulin Lispro (HumaLOG) vial - multi-dose SQ SCH ×3 (07:30→17:30)
[2017-09-08] MEDS: clonazePAM 1mg tablet PO SCH ×3 (07:37→22:12)
[2017-09-08] MEDS: FLUoxetine 10mg capsule PO SCH ×3 (07:38→22:12)
[2017-09-08] MEDS: gabapentin 300mg capsule PO SCH ×2 (07:38→13:55)
[2017-09-08] MEDS: amiodarone 200mg tablet PO SCH ×2 (07:38→19:33)
[2017-09-08] MEDS: furosemide 20MG tablet PO SCH ×2 (07:38→19:33)
[2017-09-08] MEDS: pantoprazole 40mg Tablet.DR PO SCH (07:38)
[2017-09-08] MEDS: aspirin 81mg tab.chew PO SCH (07:38)
[2017-09-08] MEDS: K and/or MAG REPLACEMENT MC SCH (08:00)
[2017-09-08] MEDS: fluticasone/vilanterol 200mcg/25mcg inhaler IH SCH (08:00)
[2017-09-08] MEDS ORDERED: warfarin 5mg tablet PO SCH (21:00)
[2017-09-08] MEDS: insulin glargine (Lantus) pen - multi-dose SQ SCH (21:00)
[2017-09-08] MEDS: temazepam 15mg capsule PO PRN (22:12)
[2017-09-08] MEDS: mirtazapine 15mg tablet PO SCH (22:12)
[2017-09-08] MEDS: atorvastatin 20mg tablet PO SCH (22:12)
[2017-09-09 05:22] VITALS: BP 128/67
[2017-09-09 06:56] LABS: BASOPHILS % (AUTO) 0.3 % (0-1); EOSINOPHILS # (AUTO) 0.2 X10'3 (0-0.9); HEMOGLOBIN 10.3 g/dl (12.0-16.0); LYMPHOCYTES % (AUTO) 32.9 % (21-51); MEAN CORPUSCULAR HEMOGLOBIN 28.6 PG (27.0-31.0); MEAN CORPUSCULAR HGB CONC 32.3 % (33.0-36.5); MEAN CORPUSCULAR VOLUME 88.7 FL (78-98); MEAN PLATELET VOLUME 7.4 FL (7.4-10.4); MONOCYTES # (AUTO) 0.5 X10'3 (0-0.9); MONOCYTES % (AUTO) 8.2 % (2-12); NEUTROPHILS # (AUTO) 3.3 X10'3 (1.8-7.7); NEUTROPHILS % (AUTO) 55.6 % (42-75); PLATELET COUNT 140 X10'3 (140-440); RED CELL DISTRIBUTION WIDTH 25.4 % (11.5-14.5); WHITE BLOOD COUNT 5.9 X10'3 (4.5-11.0)
[2017-09-09 07:00] VITALS: BP 112/62
[2017-09-09 07:10] LABS: INR 2.6 INR
[2017-09-09 07:29] LABS: NUCLEATED RED BLOOD CELLS 4 /100WBC (0-0); TOTAL CELLS COUNTED 100
[2017-09-09 07:30] LABS: ALANINE AMINOTRANSFERASE 30 U/L (12-78); ALBUMIN 2.5 G/DL (3.4-5.0); ALBUMIN/GLOBULIN RATIO 0.7 (1.1-1.5); ALKALINE PHOSPHATASE 123 IU/L (46-116); ANION GAP 7 (8-16); ASPARTATE AMINO TRANSFERASE 18 U/L (10-37); BLOOD UREA NITROGEN 45 MG/DL (7-18); BUN/CREATININE RATIO 16.9 (6.6-38.0); CALCIUM 8.1 MG/DL (8.5-10.1); CHLORIDE 104 MMOL/L (99-107); CREATININE 2.66 MG/DL (0.40-0.90); GLUCOSE 114 MG/DL (70-104); MAGNESIUM 2.3 MG/DL (1.5-2.4); POTASSIUM 4.1 MMOL/L (3.5-5.1); SODIUM 146 MMOL/L (135-145); TOTAL CARBON DIOXIDE 35.4 MMOL/L (24-32); eGFR 18 ML/MIN
[2017-09-09] MEDS: sevelamer carbonate 800mg tablet PO SCH ×2 (07:30→18:26)
[2017-09-09] MEDS: insulin Lispro (HumaLOG) vial - multi-dose SQ SCH ×3 (07:30→17:30)
[2017-09-09 07:31] LABS: ANISOCYTOSIS 3+; HYPOCHROMASIA 1+; PLATELET ESTIMATE DECREASED; POLYCHROMASIA 1+; STOMATOCYTES 1+
[2017-09-09] MEDS: K and/or MAG REPLACEMENT MC SCH (08:00)
[2017-09-09] MEDS: fluticasone/vilanterol 200mcg/25mcg inhaler IH SCH (08:00)
[2017-09-09] MEDS: amiodarone 200mg tablet PO SCH ×2 (08:03→19:37)
[2017-09-09] MEDS: clonazePAM 1mg tablet PO SCH ×3 (08:03→21:16)
[2017-09-09] MEDS: furosemide 20MG tablet PO SCH ×2 (08:03→19:37)
[2017-09-09] MEDS: aspirin 81mg tab.chew PO SCH (08:03)
[2017-09-09] MEDS: FLUoxetine 10mg capsule PO SCH ×3 (08:03→21:14)
[2017-09-09] MEDS: gabapentin 300mg capsule PO SCH ×2 (08:03→13:07)
[2017-09-09] MEDS: pantoprazole 40mg Tablet.DR PO SCH (08:03)
[2017-09-09] MEDS: traMADol 50MG tablet PO PRN ×2 (08:14→21:15)
[2017-09-09 11:30] VITALS: BP 121/68
[2017-09-09 15:00] VITALS: BP 108/68
[2017-09-09 19:00] VITALS: BP 110/81
[2017-09-09] MEDS: insulin glargine (Lantus) pen - multi-dose SQ SCH (21:00)
[2017-09-09] MEDS ORDERED: warfarin 2.5mg tablet PO ONE (21:00)
[2017-09-09] MEDS: mirtazapine 15mg tablet PO SCH (21:15)
[2017-09-09] MEDS: temazepam 15mg capsule PO PRN (21:15)
[2017-09-09] MEDS: atorvastatin 20mg tablet PO SCH (21:16)
[2017-09-09 23:00] VITALS: BP 121/83
[2017-09-10 03:00] VITALS: BP 120/67
[2017-09-10 06:00] VITALS: BP 118/82
[2017-09-10 06:30] LABS: BASOPHILS % (AUTO) 0.3 % (0-1); EOSINOPHILS # (AUTO) 0.2 X10'3 (0-0.9); EOSINOPHILS % (AUTO) 2.3 % (0-6); HEMATOCRIT 33.5 % (35.0-45.0); HEMOGLOBIN 10.7 g/dl (12.0-16.0); LYMPHOCYTES # (AUTO) 2.1 X10'3 (1.1-4.8); LYMPHOCYTES % (AUTO) 30.7 % (21-51); MEAN CORPUSCULAR HEMOGLOBIN 28.4 PG (27.0-31.0); MEAN CORPUSCULAR VOLUME 88.9 FL (78-98); MEAN PLATELET VOLUME 7.2 FL (7.4-10.4); MONOCYTES # (AUTO) 0.6 X10'3 (0-0.9); MONOCYTES % (AUTO) 8.6 % (2-12); NEUTROPHILS # (AUTO) 3.9 X10'3 (1.8-7.7); NEUTROPHILS % (AUTO) 58.1 % (42-75); PLATELET COUNT 138 X10'3 (140-440); RED BLOOD COUNT 3.77 X10'6 (4.20-5.60); WHITE BLOOD COUNT 6.7 X10'3 (4.5-11.0)
[2017-09-10 06:40] LABS: INR 2.2 INR
[2017-09-10 06:50] LABS: ALANINE AMINOTRANSFERASE 23 U/L (12-78); ALBUMIN 2.5 G/DL (3.4-5.0); ALBUMIN/GLOBULIN RATIO 0.7 (1.1-1.5); ALKALINE PHOSPHATASE 135 IU/L (46-116); ANION GAP 8 (8-16); ASPARTATE AMINO TRANSFERASE 19 U/L (10-37); BILIRUBIN,TOTAL 1.4 MG/DL (0.1-1.0); BLOOD UREA NITROGEN 38 MG/DL (7-18); BUN/CREATININE RATIO 14.6 (6.6-38.0); CALCIUM 8.3 MG/DL (8.5-10.1); CHLORIDE 102 MMOL/L (99-107); GLUCOSE 125 MG/DL (70-104); POTASSIUM 3.9 MMOL/L (3.5-5.1); SODIUM 145 MMOL/L (135-145); TOTAL CARBON DIOXIDE 34.8 MMOL/L (24-32); TOTAL PROTEIN 6.1 G/DL (6.4-8.2); eGFR 19 ML/MIN
[2017-09-10 06:53] LABS: PLATELET ESTIMATE DECREASED
[2017-09-10 06:54] LABS: ANISOCYTOSIS 3+
[2017-09-10 06:55] LABS: POLYCHROMASIA FEW
[2017-09-10] MEDS: insulin Lispro (HumaLOG) vial - multi-dose SQ SCH ×3 (07:30→17:30)
[2017-09-10] MEDS: gabapentin 300mg capsule PO SCH ×2 (07:52→13:25)
[2017-09-10] MEDS: pantoprazole 40mg Tablet.DR PO SCH (07:52)
[2017-09-10] MEDS: amiodarone 200mg tablet PO SCH ×2 (07:52→21:33)
[2017-09-10] MEDS: FLUoxetine 10mg capsule PO SCH ×3 (07:53→21:33)
[2017-09-10] MEDS: clonazePAM 1mg tablet PO SCH ×3 (07:53→21:33)
[2017-09-10] MEDS: furosemide 20MG tablet PO SCH ×2 (07:53→21:32)
[2017-09-10] MEDS: aspirin 81mg tab.chew PO SCH (07:53)
[2017-09-10] MEDS: sevelamer carbonate 800mg tablet PO SCH ×2 (07:53→17:34)
[2017-09-10] MEDS: traMADol 50MG tablet PO PRN ×2 (07:55→17:49)
[2017-09-10] MEDS: K and/or MAG REPLACEMENT MC SCH (07:59)
[2017-09-10] MEDS: fluticasone/vilanterol 200mcg/25mcg inhaler IH SCH (08:57)
[2017-09-10] MEDS ORDERED: nitroGLYCERIN 0.4mg SUBLingual tab SL PRN (09:00)
[2017-09-10] MEDS ORDERED: aspirin 81mg tab.chew PO ONE (09:00)
[2017-09-10] MEDS ORDERED: LIDOcaine Viscous 15ml cup MM PRN (09:50)
[2017-09-10] MEDS ORDERED: mag hydrox/Alum hydrox/simeth 30ml oral suspension PO ONE (10:00)
[2017-09-10 11:00] VITALS: BP 126/87
[2017-09-10 15:00] VITALS: BP 120/81
[2017-09-10 19:00] VITALS: BP 110/65
[2017-09-10] MEDS ORDERED: carVEDilol 3.125mg tablet PO SCH (20:00)
[2017-09-10] MEDS ORDERED: warfarin 5mg tablet PO ONE (21:00)
[2017-09-10] MEDS: insulin glargine (Lantus) pen - multi-dose SQ SCH (21:00)
[2017-09-10] MEDS: atorvastatin 20mg tablet PO SCH (21:32)
[2017-09-10] MEDS: mirtazapine 15mg tablet PO SCH (21:33)
[2017-09-10] MEDS: carVEDilol 3.125mg tablet PO SCH (21:34)
[2017-09-10] MEDS: ranolazine 500mg SR tablet (Q12H) PO SCH (21:42)
[2017-09-10 23:00] VITALS: BP 116/86
[2017-09-11 03:00] VITALS: BP 110/74
[2017-09-11 06:00] VITALS: BP 119/86
[2017-09-11 06:14] LABS: BASOPHILS % (AUTO) 0.1 % (0-1); EOSINOPHILS # (AUTO) 0.2 X10'3 (0-0.9); HEMOGLOBIN 11.1 g/dl (12.0-16.0); LYMPHOCYTES # (AUTO) 2.4 X10'3 (1.1-4.8); LYMPHOCYTES % (AUTO) 30.3 % (21-51); MEAN CORPUSCULAR HEMOGLOBIN 29.1 PG (27.0-31.0); MEAN CORPUSCULAR HGB CONC 32.7 % (33.0-36.5); MEAN CORPUSCULAR VOLUME 88.8 FL (78-98); MEAN PLATELET VOLUME 7.5 FL (7.4-10.4); MONOCYTES # (AUTO) 0.6 X10'3 (0-0.9); MONOCYTES % (AUTO) 7.7 % (2-12); NEUTROPHILS # (AUTO) 4.6 X10'3 (1.8-7.7); NEUTROPHILS % (AUTO) 58.9 % (42-75); PLATELET COUNT 142 X10'3 (140-440); RED BLOOD COUNT 3.83 X10'6 (4.20-5.60); RED CELL DISTRIBUTION WIDTH 26.4 % (11.5-14.5); WHITE BLOOD COUNT 7.9 X10'3 (4.5-11.0)
[2017-09-11 06:21] LABS: INR 2.2 INR; PROTHROMBIN TIME 22.5 SECONDS (9.0-12.0)
[2017-09-11 06:27] LABS: ALANINE AMINOTRANSFERASE 23 U/L (12-78); ALBUMIN 2.7 G/DL (3.4-5.0); ALBUMIN/GLOBULIN RATIO 0.6 (1.1-1.5); ALKALINE PHOSPHATASE 154 IU/L (46-116); ANION GAP 10 (8-16); ASPARTATE AMINO TRANSFERASE 23 U/L (10-37); BILIRUBIN,TOTAL 1.7 MG/DL (0.1-1.0); BLOOD UREA NITROGEN 35 MG/DL (7-18); BUN/CREATININE RATIO 12.5 (6.6-38.0); CALCIUM 8.7 MG/DL (8.5-10.1); CHLORIDE 99 MMOL/L (99-107); CREATININE 2.79 MG/DL (0.40-0.90); GLUCOSE 188 MG/DL (70-104); POTASSIUM 4.2 MMOL/L (3.5-5.1); SODIUM 142 MMOL/L (135-145); TOTAL CARBON DIOXIDE 33.1 MMOL/L (24-32); TOTAL PROTEIN 6.9 G/DL (6.4-8.2); eGFR 17 ML/MIN
[2017-09-11] MEDS: carVEDilol 3.125mg tablet PO SCH ×2 (07:25→20:42)
[2017-09-11] MEDS: gabapentin 300mg capsule PO SCH ×2 (07:25→13:29)
[2017-09-11] MEDS: clonazePAM 1mg tablet PO SCH ×3 (07:25→20:42)
[2017-09-11] MEDS: sevelamer carbonate 800mg tablet PO SCH ×2 (07:25→17:34)
[2017-09-11] MEDS: amiodarone 200mg tablet PO SCH ×2 (07:25→20:43)
[2017-09-11] MEDS: aspirin 81mg tab.chew PO SCH (07:25)
[2017-09-11] MEDS: ranolazine 500mg SR tablet (Q12H) PO SCH ×2 (07:25→20:40)
[2017-09-11] MEDS: pantoprazole 40mg Tablet.DR PO SCH (07:25)
[2017-09-11] MEDS: FLUoxetine 10mg capsule PO SCH ×3 (07:26→20:44)
[2017-09-11] MEDS: furosemide 20MG tablet PO SCH ×2 (07:26→20:42)
[2017-09-11] MEDS: insulin Lispro (HumaLOG) vial - multi-dose SQ SCH ×3 (07:27→18:48)
[2017-09-11] MEDS: traMADol 50MG tablet PO PRN ×2 (07:27→17:41)
[2017-09-11] MEDS: fluticasone/vilanterol 200mcg/25mcg inhaler IH SCH (07:31)
[2017-09-11] MEDS: K and/or MAG REPLACEMENT MC SCH (07:35)
[2017-09-11 07:52] LABS: ANISOCYTOSIS 3+; PLATELET ESTIMATE NORMAL
[2017-09-11 07:53] LABS: POLYCHROMASIA FEW
[2017-09-11 11:00] VITALS: BP 119/73
[2017-09-11] MEDS ORDERED: non-formulary drug (Albuterol Sulfate (Proair Hfa) 2 PUFFS) IH PRN (14:00)
[2017-09-11 15:00] VITALS: BP 107/71
[2017-09-11 19:00] VITALS: BP 122/84
[2017-09-11] MEDS: mirtazapine 15mg tablet PO SCH (20:43)
[2017-09-11] MEDS: potassium chloride 8mEq ER tablet PO SCH (20:43)
[2017-09-11] MEDS: atorvastatin 20mg tablet PO SCH (20:43)
[2017-09-11] MEDS ORDERED: warfarin 5mg tablet PO ONE (21:00)
[2017-09-11] MEDS: insulin glargine (Lantus) pen - multi-dose SQ SCH (21:46)
[2017-09-11 23:00] VITALS: BP 105/51
[2017-09-12 03:00] VITALS: BP 121/78
[2017-09-12 05:33] LABS: BASOPHILS % (AUTO) 0.3 % (0-1); EOSINOPHILS # (AUTO) 0.1 X10'3 (0-0.9); EOSINOPHILS % (AUTO) 2.4 % (0-6); HEMATOCRIT 30.9 % (35.0-45.0); HEMOGLOBIN 9.9 g/dl (12.0-16.0); LYMPHOCYTES # (AUTO) 2.4 X10'3 (1.1-4.8); LYMPHOCYTES % (AUTO) 40.2 % (21-51); MEAN CORPUSCULAR HEMOGLOBIN 28.8 PG (27.0-31.0); MEAN CORPUSCULAR VOLUME 89.8 FL (78-98); MEAN PLATELET VOLUME 7.3 FL (7.4-10.4); MONOCYTES # (AUTO) 0.7 X10'3 (0-0.9); MONOCYTES % (AUTO) 11.3 % (2-12); NEUTROPHILS # (AUTO) 2.7 X10'3 (1.8-7.7); NEUTROPHILS % (AUTO) 45.8 % (42-75); PLATELET COUNT 138 X10'3 (140-440); RED BLOOD COUNT 3.44 X10'6 (4.20-5.60); RED CELL DISTRIBUTION WIDTH 25.8 % (11.5-14.5)
[2017-09-12 05:43] LABS: INR 2.6 INR; PROTHROMBIN TIME 26.2 SECONDS (9.0-12.0)
[2017-09-12 05:53] LABS: ALANINE AMINOTRANSFERASE 28 U/L (12-78); ALBUMIN 2.6 G/DL (3.4-5.0); ALBUMIN/GLOBULIN RATIO 0.7 (1.1-1.5); ALKALINE PHOSPHATASE 127 IU/L (46-116); ANION GAP 5 (8-16); ASPARTATE AMINO TRANSFERASE 18 U/L (10-37); BILIRUBIN,TOTAL 0.9 MG/DL (0.1-1.0); BLOOD UREA NITROGEN 37 MG/DL (7-18); BUN/CREATININE RATIO 11.1 (6.6-38.0); CALCIUM 8.5 MG/DL (8.5-10.1); CHLORIDE 100 MMOL/L (99-107); CREATININE 3.32 MG/DL (0.40-0.90); GLUCOSE 140 MG/DL (70-104); MAGNESIUM 1.9 MG/DL (1.5-2.4); POTASSIUM 3.8 MMOL/L (3.5-5.1); SODIUM 142 MMOL/L (135-145); TOTAL CARBON DIOXIDE 36.6 MMOL/L (24-32); TOTAL PROTEIN 6.4 G/DL (6.4-8.2); eGFR 14 ML/MIN
[2017-09-12 06:00] VITALS: BP 113/76
[2017-09-12] MEDS: fluticasone/vilanterol 200mcg/25mcg inhaler IH SCH (06:55)
[2017-09-12 07:25] LABS: ANISOCYTOSIS 3+; PLATELET ESTIMATE DECREASED; STOMATOCYTES 1+
[2017-09-12] MEDS: sevelamer carbonate 800mg tablet PO SCH (07:30)
[2017-09-12] MEDS ORDERED: Non-Formulary PO (07:40)
[2017-09-12] MEDS ORDERED: PANT40TA4 PO (07:40)
[2017-09-12] MEDS ORDERED: RANO500T3 PO (07:40)
[2017-09-12] MEDS ORDERED: NITR0.4T51 SL (07:40)
[2017-09-12] MEDS ORDERED: COR3.125T PO (07:40)
[2017-09-12] MEDS: carVEDilol 3.125mg tablet PO SCH (07:51)
[2017-09-12] MEDS: furosemide 20MG tablet PO SCH (07:51)
[2017-09-12] MEDS: FLUoxetine 10mg capsule PO SCH ×2 (07:51→12:36)
[2017-09-12] MEDS: aspirin 81mg tab.chew PO SCH (07:52)
[2017-09-12] MEDS: amiodarone 200mg tablet PO SCH (07:52)
[2017-09-12] MEDS: clonazePAM 1mg tablet PO SCH ×2 (07:52→12:36)
[2017-09-12] MEDS: gabapentin 300mg capsule PO SCH ×2 (07:52→13:53)
[2017-09-12] MEDS: pantoprazole 40mg Tablet.DR PO SCH (07:52)
[2017-09-12] MEDS: K and/or MAG REPLACEMENT MC SCH (08:00)
[2017-09-12] MEDS: ranolazine 500mg SR tablet (Q12H) PO SCH (08:03)
[2017-09-12] MEDS: potassium chloride 8mEq ER tablet PO SCH ×2 (08:03→12:36)
[2017-09-12] MEDS: traMADol 50MG tablet PO PRN (08:07)
[2017-09-12] MEDS ORDERED: POTA8CAP9 PO (08:19)
[2017-09-12] MEDS: insulin Lispro (HumaLOG) vial - multi-dose SQ SCH ×2 (08:20→13:35)
[2017-09-12 11:00] VITALS: BP 116/79
[2017-09-12 15:00] VITALS: BP 112/79
[2017-09-12] MEDS ORDERED: warfarin 3mg tablet PO ONE (21:00)
== END 2017-09-12 15:40 | DRG 280 ==
LOC: ER 16:06 → ED HOLD 21:36 → PCU 3S 22:35
PROVIDERS: ADMIT Internal Medicine; ATTEND Family Medicine
DX: I21.4 Non-ST elevation (NSTEMI) myocardial infarction (principal); G93.41 Metabolic encephalopathy; E87.0 Hyperosmolality and hypernatremia; N17.9 Acute kidney failure, unspecified; E11.22 Type 2 diabetes mellitus with diabetic chronic kidney disease; E83.41 Hypermagnesemia; I27.20 Pulmonary hypertension, unspecified; I50.30 Unspecified diastolic (congestive) heart failure; Z68.42 Body mass index [BMI] 45.0-49.9, adult; J44.1 Chronic obstructive pulmonary disease with (acute) exacerbation; D64.9 Anemia, unspecified; E87.5 Hyperkalemia; E66.9 Obesity, unspecified; T46.0X5A Adverse effect of cardiac-stimulant glycosides and drugs of similar action, initial encounter; E78.5 Hyperlipidemia, unspecified; I48.2 Chronic atrial fibrillation; K59.00 Constipation, unspecified; N18.9 Chronic kidney disease, unspecified; F32.9 Major depressive disorder, single episode, unspecified; F41.9 Anxiety disorder, unspecified; G89.29 Other chronic pain; R00.1 Bradycardia, unspecified; Z99.81 Dependence on supplemental oxygen; Z79.4 Long term (current) use of insulin; Z79.899 Other long term (current) drug therapy; Z79.82 Long term (current) use of aspirin; Z79.01 Long term (current) use of anticoagulants; Z88.8 Allergy status to other drugs, medicaments and biological substances; Z86.711 Personal history of pulmonary embolism; Z85.3 Personal history of malignant neoplasm of breast; Z87.891 Personal history of nicotine dependence; Z82.5 Family history of asthma and other chronic lower respiratory diseases; Y92.89 Other specified places as the place of occurrence of the external cause; Y93.89 Activity, other specified; Y99.8 Other external cause status
CPT/HCPCS: 36415; 70450; 71045; 73030; 73090; 80048; 80053; 80061; 80162; 82948; 83735; 83880; 84439; 84443; 84484; 85025; 85610; 87070; 93005; 93306; 94640; 94760; 96374; 96375; 97110; 97116; 97530; 99285; A4353; A6250; C1758; J1815; J1940; J7030

== ENCOUNTER 2017-10-09 06:34 | Emergency (ER) | payer MEDICARE, MEDICAID ==
[~2017-10-09] VITALS: Ht 175.3 cm; Wt 148.0 kg
[~2017-10-09 06:34] MED LIST changes: -ALBU2.5V10 IH; +COR3.125T PO; -DIGO125T5 PO; -MIRT15TA PO; +NITR0.4T51 SL; +PANT40TA4 PO; -PRED10TA PO; +RANO500T3 PO; -TRAM50TA2 PO; -WARF4TAB7 PO
[2017-10-09] MEDS ORDERED: normal saline 1000ML IV soln IVB ONE (07:05)
[2017-10-09] MEDS ORDERED: aspirin 81mg tab.chew PO ONE (07:05)
[2017-10-09 07:22] LABS: BASOPHILS % (AUTO) 0.3 % (0-1); EOSINOPHILS # (AUTO) 0.3 X10'3 (0-0.9); EOSINOPHILS % (AUTO) 4.1 % (0-6); HEMATOCRIT 28.8 % (35.0-45.0); HEMOGLOBIN 9.1 g/dl (12.0-16.0); LYMPHOCYTES # (AUTO) 2.4 X10'3 (1.1-4.8); LYMPHOCYTES % (AUTO) 35.1 % (21-51); MEAN CORPUSCULAR HEMOGLOBIN 28.1 PG (27.0-31.0); MEAN CORPUSCULAR HGB CONC 31.7 % (33.0-36.5); MEAN CORPUSCULAR VOLUME 88.6 FL (78-98); MEAN PLATELET VOLUME 7.2 FL (7.4-10.4); MONOCYTES # (AUTO) 0.5 X10'3 (0-0.9); MONOCYTES % (AUTO) 7.3 % (2-12); NEUTROPHILS # (AUTO) 3.7 X10'3 (1.8-7.7); NEUTROPHILS % (AUTO) 53.2 % (42-75); PLATELET COUNT 160 X10'3 (140-440); RED BLOOD COUNT 3.25 X10'6 (4.20-5.60)
[2017-10-09 07:31] LABS: INR 1.5 INR; PROTHROMBIN TIME 15.4 SECONDS (9.0-12.0)
[2017-10-09 07:44] LABS: ALANINE AMINOTRANSFERASE 35 U/L (12-78); ALBUMIN 2.6 G/DL (3.4-5.0); ALBUMIN/GLOBULIN RATIO 0.6 (1.1-1.5); ALKALINE PHOSPHATASE 210 IU/L (46-116); ANION GAP 7 (8-16); ASPARTATE AMINO TRANSFERASE 26 U/L (10-37); BILIRUBIN,TOTAL 0.5 MG/DL (0.1-1.0); BLOOD UREA NITROGEN 39 MG/DL (7-18); BUN/CREATININE RATIO 15.1 (6.6-38.0); CALCIUM 8.2 MG/DL (8.5-10.1); CHLORIDE 105 MMOL/L (99-107); CREATININE 2.59 MG/DL (0.40-0.90); GLUCOSE 187 MG/DL (70-104); MAGNESIUM 1.9 MG/DL (1.5-2.4); SODIUM 148 MMOL/L (135-145); TOTAL CARBON DIOXIDE 36.5 MMOL/L (24-32); TOTAL PROTEIN 7.2 G/DL (6.4-8.2); eGFR 19 ML/MIN
[2017-10-09] MEDS ORDERED: furosemide 40mg/4ml inj IV ONE (08:10)
[2017-10-09] MEDS ORDERED: furosemide 20 MG/2 ML vial IV ONE (08:45)
[2017-10-09 12:15] VITALS: BP 130/82
== END 2017-10-09 12:16 | disposition home or self-care (01) ==
LOC: ER 06:35
DX: R07.9 Chest pain, unspecified (principal); I48.91 Unspecified atrial fibrillation; I50.9 Heart failure, unspecified; J44.9 Chronic obstructive pulmonary disease, unspecified; N18.9 Chronic kidney disease, unspecified; Z87.891 Personal history of nicotine dependence; Z79.82 Long term (current) use of aspirin; Z79.4 Long term (current) use of insulin
CPT/HCPCS: 36415; 71046; 80053; 80162; 83735; 83880; 84484; 85025; 85610; 93005; 96361; 96374; 99285; J1940; J7030